=== PATIENT | male | born 1945 | race Caucasian/White ===

== ENCOUNTER 2018-02-28 17:18 | Emergency (ER) | payer MEDICARE, OTHER ==
[2018-02-28 18:09] LABS: ABS Basophils 0.1 10^3/ul (0-0.2); ABS Eosinophils 0.1 10^3/ul (0-0.6); ABS Lymphocytes 0.9 10^3/ul (1.0-4.8); ABS Monocytes 0.8 10^3/ul (0-0.8); ABS Neutrophils 6.2 10^3/ul (1.5-7.7); ABS Nucleated RBC 0 10^3/ul; Eosinophil % 1.1 % (0-6); Hematocrit 43 % (42-52); Hemoglobin 14.5 g/dl (14.0-18.0); Lymphocyte % 11.6 % (25-47); Mean Corpuscular HGB Conc 34 g/dl (31-36); Mean Corpuscular Hemoglobin 29 pg (27-31); Mean Corpuscular Volume 87 fL (80-94); Mean Platelet Volume 8.2 um3 (7.4-10.4); Nucleated Red Blood Cells % 0; Platelet Count 185 10^3/ul (150-450); Red Blood Count 4.93 10^6/ul (4.0-5.4); Red Cell Distribution Width 14 % (10.5-15); White Blood Count 8.2 10^3/ul (3.5-10.8)
[2018-02-28 18:26] LABS: EGFR Non-African American 56.3 (>60)
--- NOTE | 2018-02-28 18:46 | RAD ---
CLINICAL HISTORY: Right flank pain and right lower quadrant pain COMPARISON: November 15, 2009 TECHNIQUE: Multiple contiguous axial CT scans were obtained of the abdomen and pelvis, without intravenous contrast enhancement. Coronal and sagittal multiplanar reformations are submitted for review. Oral contrast was not administered. FINDINGS: The study is limited by the lack of intravenous contrast. This limits evaluation of the solid organs and vasculature. LUNG BASES: There is a calcified granuloma of the left lower lobe. LIVER: The liver is normal in shape, size, contour, and attenuation. BILE DUCTS: There is no intrahepatic or extrahepatic biliary dilatation. GALLBLADDER: The gallbladder is normal, without pericholecystic inflammatory change. PANCREAS: There is fatty atrophy of the pancreas. SPLEEN: Normal in size and appearance. UPPER GI TRACT: Evaluation of the gastrointestinal tract is limited by incomplete gastric distention. The upper GI tract is unremarkable. SMALL BOWEL AND MESENTERY: The small bowel is normal in contour, course, and caliber. There is no obstruction or dilatation. COLON: There is scattered diverticula of the distal colon. There is a tubular, vermiform, hollow viscus that is blind ending, and originates from the cecum, consistent with a normal appendix. There is no periappendiceal inflammatory change. This is best seen on coronal images 51 through 59. ADRENALS: Normal bilaterally. KIDNEYS: There are multiple renal calyceal stones bilaterally. There is a 0.3 cm calculus of the mid right ureter. There is mild pelvocaliectasis and hydroureter. BLADDER: The bladder is smooth in contour. PELVIC ORGANS: The pelvic organs are not visualized. AORTA: There is calcific atherosclerotic disease of the abdominal aorta and its branches, without aneurysmal dilatation IVC: Unremarkable LYMPH NODES: There is no lymphadenopathy by size criteria. ABDOMINAL WALL: There is no evidence for abdominal wall hernia. BONES AND SOFT TISSUES: Degenerative changes are noted of the spine. OTHER: None IMPRESSION: 1. BILATERAL NEPHROLITHIASIS INCLUDING A 0.3 CM TRACT WAS OF THE RIGHT MID URETER WITH MILD RIGHT HYDRONEPHROSIS. 2. SCATTERED DIVERTICULA OF THE DISTAL COLON.
[2018-02-28] MEDS ORDERED: Ketorolac INJ* 30 MG/ML 1 ML VIAL IV PUSH ONE (19:14)
[2018-02-28] MEDS ORDERED: Tamsulosin CAP* 0.4 MG PO ONE (19:48)
--- NOTE | 2018-02-28 19:50 | ED ---
GI/ HPI - HPI Summary HPI Summary: 43-year-old male presents with right lower quadrant pain for the past day. He states in the pain started he felt dizzy and nauseous. He states he became diaphoretic. He denies any chest pain or shortness breath. He has a history of stent placement. He denies any history of kidney stones. He states his pain does radiate to right flank. Denies any pain medication. He denies any hematuria. He denies any vomiting. Denies any diarrhea constipation. He denies any fevers. - History of Current Complaint Chief Complaint: EDAbdPain Time Seen by Provider: 02/28/18 17:44 Stated Complaint: LRQ PAIN Pain Intensity: 1 - Allergy/Home Medications Allergies/Adverse Reactions: Allergies Allergy/AdvReac Type Severity Reaction Status Date / Time Tetanus Vaccines and Toxoid AdvReac Fever Verified 01/10/18 15:32 Home Medications: Home Medications Aspirin EC TAB* [Ecotrin EC Low Dose 81 MG*] 81 mg PO DAILY 02/28/18 [History Confirmed 02/28/18] Canagliflozin (NF) [Invokana (NF)] 100 mg PO DAILY 02/28/18 [History Confirmed 02/28/18] Nitroglycerin TAB 0.4 MG* 0.4 mg SL Q5M PRN 02/28/18 [History Confirmed 02/28/18 ] Pantoprazole TAB (NF) [Protonix TAB (NF)] 40 mg PO DAILY 02/28/18 [History Confirmed 02/28/18] Rosuvastatin (NF) [Crestor (NF)] 10 mg PO DAILY 02/28/18 [History Confirmed 01/13] metFORMIN* [Glucophage 500 MG TAB *] 500 mg PO BID 02/28/18 [History Confirmed 02/28/18] PMH/Surg Hx/FS Hx/Imm Hx Endocrine/Hematology History: Denies: Hx Diabetes Cardiovascular History: Reports: Hx Angina - had back pain, Hx Coronary Artery Disease, Hx Hypercholesterolemia, Hx Hypertension Denies: Hx Myocardial Infarction, Hx Pacemaker/ICD, Hx Valvular Heart Disease Respiratory History: Denies: Hx Asthma, Hx Chronic Obstructive Pulmonary Disease (COPD) History: Denies: Hx Dialysis Sensory History: Denies: Hx Hearing Aid Psychiatric History: Denies: Hx Panic Disorder - Surgical History Surgery Procedure, Year, and Place: CARDIAC STENT- [facility] SCIENTIFIC VERIFLEX- PER DR SOTO- MRIs ONLY ON 1.5T AND NO MRIs BETWEEN CSP & PELVIS- OK TO SCAN THIS PT'S PELVIS & BELOW); CATARACTS; PROSTATE REMOVED 2010; Infectious Disease History: No Infectious Disease History: Denies: Hx Clostridium Difficile, Hx Hepatitis, Hx Human Immunodeficiency Virus (HIV), Hx of Known/Suspected MRSA, Hx Shingles, Hx Tuberculosis, Traveled Outside the [place] in Last 30 Days - Social History Alcohol Use: Rare Substance Use Type: Reports: None Smoking Status (MU): Former Smoker Type: Cigarettes Length of Time of Smoking/Using Tobacco: 8yrs Have You Smoked in the Last Year: No Review of Systems Negative: Fever Negative: Chest Pain Negative: Shortness Of Breath Positive: Abdominal Pain. Negative: Vomiting, Nausea Positive: flank pain Neurological: Other - dizziness All Other Systems Reviewed And Are Negative: Yes Physical Exam Triage Information Reviewed: Yes Vital Signs On Initial Exam: Initial Vitals Pulse Pulse Ox 75 99 02/28/18 17:28 02/28/18 17:28 Vital Signs Reviewed: Yes Appearance: Positive: Well-Appearing Skin: Positive: Warm, Dry Head/Face: Positive: Normal Head/Face Inspection Eyes: Positive: Normal, Conjunctiva Clear ENT: Positive: Pharynx normal Respiratory/Lung Sounds: Positive: Clear to Auscultation, Breath Sounds Present Cardiovascular: Positive: Normal, RRR Abdomen Description: Positive: Soft, CVA Tenderness (R), Other: - mild tenderness RLQ Bowel Sounds: Positive: Present Musculoskeletal: Positive: Normal Neurological: Positive: Normal Psychiatric: Positive: Normal Diagnostics - Vital Signs Vital Signs Temp Pulse Resp BP Pulse Ox 02/28/18 18:28 16 135/95 02/28/18 18:00 73 15 99 02/28/18 17:58 78 18 141/94 100 02/28/18 17:31 77 10 135/97 99 02/28/18 17:30 97.3 F 79 16 135/97 100 02/28/18 17:28 75 99 - Laboratory Lab Results: Lab Results 02/28/18 02/28/18 02/28/18 Range/Units 17:57 17:57 17:57 WBC 8.2 (3.5-10.8) 10^3/ul RBC 4.93 (4.0-5.4) 10^6/ul Hgb 14.5 (14.0-18.0) g/dl Hct 43 (42-52) % MCV 87 (80-94) fL MCH 29 (27-31) pg MCHC 34 (31-36) g/dl RDW 14 (10.5-15) % Plt Count 185 (150-450) 10^3/ul MPV 8.2 (7.4-10.4) um3 Neut % (Auto) 76.2 (38-83) % Lymph % (Auto) 11.6 L (25-47) % Ross % (Auto) 10.3 H (0-7) % Eos % (Auto) 1.1 (0-6) % Baso % (Auto) 0.8 (0-2) % Absolute Neuts (auto) 6.2 (1.5-7.7) 10^3/ul Absolute Lymphs (auto) 0.9 L (1.0-4.8) 10^3/ul Absolute Monos (auto) 0.8 (0-0.8) 10^3/ul Absolute Eos (auto) 0.1 (0-0.6) 10^3/ul Absolute Basos (auto) 0.1 (0-0.2) 10^3/ul Absolute Nucleated RBC 0 10^3/ul Nucleated RBC % 0 Sodium 137 L (139-145) mmol/L Potassium 3.9 (3.5-5.0) mmol/L Chloride 101 (101-111) mmol/L Carbon Dioxide 28 (22-32) mmol/L Anion Gap 8 (2-11) mmol/L BUN 16 (6-24) mg/dL Creatinine 1.26 H (0.67-1.17) mg/dL Est GFR ( Amer) 72.3 (>60) Est GFR (Non-Af Amer) 56.3 (>60) BUN/Creatinine Ratio 12.7 (8-20) Glucose 142 H (70-100) mg/dL Lactic Acid 1.8 (0.5-2.0) mmol/L Calcium 9.7 (8.6-10.3) mg/dL Total Bilirubin 0.70 (0.2-1.0) mg/dL AST 29 (13-39) U/L ALT 34 (7-52) U/L Alkaline Phosphatase 70 (34-104) U/L Troponin I 0.00 (<0.04) ng/mL C-Reactive Protein 1.03 (< 5.00) mg/L Total Protein 7.4 (6.4-8.9) g/dL Albumin 4.5 (3.2-5.2) g/dL Globulin 2.9 (2-4) g/dL Albumin/Globulin Ratio 1.6 (1-3) Lipase 15 (11.0-82.0) U/L TSH 2.62 (0.34-5.60) mcIU/mL Result Diagrams: 02/28/18 17:57 02/28/18 17:57 Lab Statement: Any lab studies that have been ordered have been reviewed, and results considered in the medical decision making process. - CT abd CT Interpretation: No Acute Changes - IMPRESSION: 1. BILATERAL NEPHROLITHIASIS INCLUDING A 0.3 CM TRACT WAS OF THE RIGHT MID URETER WITH MILD RIGHT HYDRONEPHROSIS. 2. SCATTERED DIVERTICULA OF THE DISTAL COLON. CT Interpretation Completed By: Radiologist YONATHAN Course/Dx - Course Course Of Treatment: 43-year-old male presents with right lower quadrant pain for the past day. He states in the pain started he felt dizzy and nauseous. He states he became diaphoretic. He denies any chest pain or shortness breath. He has a history of stent placement. He denies any history of kidney stones. He states his pain does radiate to right flank. Denies any pain medication. He denies any hematuria. He denies any vomiting. Denies any diarrhea constipation. He denies any fevers. On exam has tenderness right lower quadrant and right flank. CT shows a 3 mm stone. urine no infection. will give pain medication although required no pain medicaton here. will have follow up with urology. patient understand and agrees with plan. - Diagnoses Differential Diagnoses - Male: Appendicitis, Ureteral Calculi, Urinary Tract Infection Provider Diagnoses: Urethral stone Discharge - Sign-Out/Discharge Documenting (check all that apply): Discharge/Admit/Transfer - Discharge Plan Condition: Good Disposition: HOME Prescriptions: Ondansetron ODT TAB* [Zofran 4 MG Odt TAB*] 4 mg PO Q6H PRN #12 tab.odt PRN Reason: Nausea oxyCODONE/Acetamin 5/325 MG* [Percocet 5/325 TAB*] 1 tab PO Q6H PRN #12 tab MDD 4 PRN Reason: Pain Tamsulosin CAP* [Flomax CAP*] 0.4 mg PO DAILY #10 cap Patient Education Materials: Ureteral Stones (ED) Referrals: Reese Streeter MD [Primary Care Provider] - Richar Gonzalez MD [Medical Doctor] - Additional Instructions: Take ibuprofen every 6 hours and narcotic as needed every 6 hours Take Zofran every 6 hours for nausea as needed Take Flomax daily starting tomorrow, first dose given in ED until stone expelled , make sure stand up slowly Follow up with urology, call office tomorrow for appointment Strain urine until collect stone Return to ED if unable to manage pain at home, develop fever, or any new or worsening symptoms - Billing Disposition and Condition Condition: GOOD Disposition: HOME
[2018-02-28 21:16] LABS: Urine Appearance Clear; Urine Blood 3+ (Negative); Urine Color Yellow; Urine Ketones 1+ (Negative); Urine Protein Negative (Negative); Urine Specific Gravity 1.016 (1.010-1.030); Urine Urobilinogen Negative (Negative)
[2018-02-28 21:35] VITALS: BP 138/87
== END 2018-02-28 21:48 | disposition home or self-care (01) ==
LOC: ED 17:18
DX: N20.1 Calculus of ureter (principal); R10.31 Right lower quadrant pain; Z87.891 Personal history of nicotine dependence
CPT/HCPCS: 36415; 74176; 80053; 81003; 81015; 83605; 83690; 84443; 84484; 85025; 86140; 87086; 93005; 96374; 99284; J1885

== ENCOUNTER 2018-12-31 08:07 | Observation (INO) | payer MEDICARE, OTHER ==
[2018-12-31] MEDS ORDERED: NS 0.9% 1000 ML** 1,000 ML IV ONE (08:22)
--- OUTSIDE RECORDS SUMMARY | 2018-12-31 08:27 | XMS REPORT | Continuity of Care Document ---
:1945 External Reference #:[id number] Author Name Tierra Cash Care Team Providers Name Role Phone Reese Streeter III, MD Care Team Information Procedure Analyst Unavailable Reese Streeter III, MD Primary Care Physician Unavailable Payers Date Identification Numbers Payment Provider Subscriber Effective: 2011 Policy Number: [id number] Medicare Cassidy Dacosta PayID: [id number] [address] [place] [address] Policy Number: [id number] [facility] Cassidy Dacosta PayID: [id number] [address] [place] [address] Effective: 2017 Policy Number: Sheila Dacosta [id number] Accident [employer] Expires: 2017 PayID: [id number] [address] [place] [address] Advance Directives Description No Information Available Problems Date Description Provider Status Onset: 01/09/2012 Acute upper respiratory infection Reese Streeter M.D. Active Onset: 01/18/2012 Gastroesophageal reflux disease Reese Streeter M.D. Active Onset: 01/18/2012 Pure hypercholesterolemia Reese Streeter M.D. Active Onset: 01/18/2012 Impaired fasting glycaemia Reese Streeter M.D. Active Onset: 01/18/2012 History of malignant neoplasm of Reese Streeter M.D. Active prostate Onset: 04/03/2012 Sore throat symptom Destiney Cash, Active N.P. Onset: 06/18/2013 Chronic ischemic heart disease Reese Streeter M.D. Active Onset: 06/18/2013 Hyperlipidemia Reese Streeter M.D. 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 Tobacco Use Start: Unknown 10/30 ppd; began age 46 quit 1996 ETOH Use 06/18/2013 Rarely consumes alcohol Tobacco Use Start: Unknown End: Patient is a former smoker Unknown Recreational Drug Use Denies Drug Use Smoking Status Reviewed: 12/17/18 Patient is a former smoker Exercise Type/Frequency Exercises regularly Allergies, Adverse Reactions, Alerts Date Description Reaction Status Severity Comments 10/04/2007 Lipitor rectal bleeding Active 10/04/2007 Zocor Active 08/04/2013 Tetnaus Injection fever, chills\\ Active Medications Medication Date Status Form Strength Qnty SIG Indications Ordering Provider Metformin HCL 07/29/ Active Tablets 500mg 360ta take 2 E11.9 Reese Blackman 2018 bs tabs in the Syl, morning and M.D. 2 in the evening Invokana 12/25/ Active Tablets 100mg 30tab 1 by mouth E11.9 Reese Blackman 2016 s every day Syl, before M.D. breakfast Crestor 01/29/ Active Tablets 10mg 90tab 1 by mouth Neftali 2013 s every day Alex, in the M.D., evening [facility] Pantoprazole 02/06/ Active Tablets 40mg 90tab take [address] Reese Hiral [address] pablo tablet Syl, every other M.D. day as needed Nitrostat 04/30/ Active Tablets 0.4mg 25tab one sl R07.9 Alvarado 2012 Sub s q5min up to Yoruba, 3 doses as [employer] needed Aspirin 00/00/ Active Tablets 81mg 1 po qd Unknown 0000 Home Glucose 12/19/ Hx (+) E11.9 Reese Blackman Monitor, Test 2017 - diabetes; Syl, Strips 06/18/ test as M.D. 2018 directed for glucose monitoring Metformin HCL 11/03/ Hx Tablets 500mg 360ta take 2 E11.9 Reese Blackman 2017 - bs tabs in the Syl, 07/29/ morning and M.D. 2018 1 in the evening Vitamin D 10/31/ Hx Capsules [id number] 8caps 1 cap by Alvarado (Ergocalciferol) 2017 - mouth once Yoruba, 12/18/ a week x8 [employer] 2017 weeks Tylenol With 10/16/ Hx Tablets 300-30mg 30tab 1 tab by S76.011D Alvarado Codeine #3 2015 - s mouth twice Yoruba, 11/14/ daily as [employer] 2016 needed for pain atleast 4-6 hours apart Cyclobenzaprine 09/27/ Hx Tablets 5mg 90tab take 1 S76.011D Alvarado HCL 2015 - s tablet by Yoruba, 10/16/ mouth up to [employer] 2015 three times a day as needed for muscle spasm Proctofoam HC 10/27/ Hx Foam 1-1% 1unit apply daily K64.9 Elder 2014 - s after bowel Pachikara 09/27/ movement , M.D. 2016 Doxycycline 02/11/ Hx Tablets 100mg 2tabs 2 tablets 911.4 Angie Hyclate 2013 - by mouth Varn, 02/12/ N.P. 2013 Crestor 01/29/ Hx Tablets 20mg 1 by mouth Neftali 2013 - every day Stefek, 01/29/ M.D., 2013 [facility], [facility] Crestor 12/26/ Hx Tablets 20mg 30tab 1 tab by Neftali 2012 - s mouth daily Stefek, 01/29/ every night M.D., 2013 [facility], [facility] Metoprolol 07/28/ Hx Tablets 25mg 180ta take 1 786.50 Neftali Tartrate 2011 - bs tablet a Stefek, 06/18/ day M.D., 2017 [facility], [facility] Lopressor 04/30/ Hx Tablets 25mgM 60tab 1 po bid 786.50 Reese Blackman 2011 - s Syl, 07/28/ M.D. 2011 Augmentin 04/03/ Hx Tablets 875-125mg 20tab take one 784.1 Destiney 2011 - s pill po [place]-W 04/14/ twice daily [place], 2012 x 10 N.P. Amoxicillin 01/08/ Hx Capsules 500mg 30cap 1 tid for 465.9 Reese Blackman 2011 - s 10 days Syl, M.DAbhijit 2011 Blood Pressure BP today is Reese Blackman Readings 2009 - 130/86 Syl, M.D. 2013 Ciprofloxacin HCL 01/19/ Hx Tablets 500mg 20tab 1 po bid Reese Blackman 2009 - s Syl, M.D. 2009 Doxycycline 02/01/ Hx Capsules 100mg 2Caps 2 caps po x Reese Blackman Hyclate 2008 - dose Syl, 01/19/ M.D. 2009 Zithromax Z-Rey 10/04/ Hx Tablets 250mg 1Pack as per Reese Blackman 2007 - directions Syl, 02/19/ M.D. 2007 Protonix / Hx Tablets 40mg 90tab 1 po qod Reese Blackman 0000 - DR samy Streeter, M.D. 2012 Cialis / Hx Tablets 20mg 10tab On Hold Unknown 0000 - s /2- 1 11/13/ prn 2013 Plavix / Hx Tablets 75mg 30tab 1 po qd Unknown 0000 - s 2012 Atorvastatin / Hx Tablets 20mg 90tab take 1 Unknown Calcium 0000 - s tablet at 02/19/ bedtime 2013 does non take Ibuprofen / Hx Tablets 200mg 4 bid S76.011D Unknown 0000 - 2016 Immunizations CPT Code Status Date Vaccine Lot # [id number] Given 08/06/2017 Influenza Virus Vaccine, Quadrivalent, Split, [id number] Preservative Free 92590 Given 07/28/2016 Influ Virus Vaccine, Quadrivalent, Split Virus, [place] [address] Given 08/18/2015 Fluzone High Dose [id number] Given 08/25/2014 Fluzone Vaccine [id number] Given 01/19/2010 Tetanus And Diptheria (Td) For Adult Use [id number] Preservative Free 29685 Given 08/05/2008 Influenza Virus 3Yrs & Over 34757 Given 08/05/2008 Influenza Virus 3Yrs & Over 12791 Given 10/29/1999 Td (History By Patient) Vital Signs Date Vital Result Comment 12/17/2018 4:47pm Height 67.8 inches 5'7.80" Weight 172.00 lb Heart Rate 84 /min BP Systolic Sitting 128 mmHg BP Diastolic Sitting 84 mmHg O2 % BldC Oximetry 98 % BMI (Body Mass Index) 26.3 kg/m2 06/19/2018 9:13am Height 67.8 inches 5'7.80" Weight 180.00 lb Heart Rate 86 /min BP Systolic Sitting 120 mmHg BP Diastolic Sitting 80 mmHg O2 % BldC Oximetry 98 % BMI (Body Mass Index) 27.5 kg/m2 12/19/2017 1:23pm Height 67.8 inches 5'7.80" Weight 179.00 lb Heart Rate 81 /min BP Systolic Sitting 118 mmHg BP Diastolic Sitting 76 mmHg O2 % BldC Oximetry 96 % BMI (Body Mass Index) 27.4 kg/m2 08/06/2017 1:15pm Height 69 inches 5'9" Weight 178.12 lb Heart Rate 80 /min BP Systolic 132 mmHg BP Diastolic 76 mmHg Body Temperature 98.0 F O2 % BldC Oximetry 98 % BMI (Body Mass Index) 26.3 kg/m2 04/23/2017 9:08am Weight 180.12 lb Heart Rate 79 /min BP Systolic 120 mmHg BP Diastolic 82 mmHg Body Temperature 98.6 F O2 % BldC Oximetry 98 % 02/14/2017 3:02pm Weight 182.00 lb Heart Rate 94 /min BP Systolic 130 mmHg BP Diastolic 82 mmHg Body Temperature 98.9 F O2 % BldC Oximetry 98 % 02/13/2017 2:06pm Weight 182.12 lb Heart Rate 88 /min BP Systolic Sitting 122 mmHg BP Diastolic Sitting 64 mmHg Body Temperature 97.6 F O2 % BldC Oximetry 98 % 01/15/2017 10:34am Height 69 inches 5'9" Weight 177.00 lb w/o shoes Heart Rate 70 /min reg BP Systolic Sitting 114 mmHg Rue, reg cuff BP Diastolic Sitting 74 mmHg Rue, reg cuff BP Systolic Standing 110 mmHg Rue BP Diastolic Standing 74 mmHg Rue Respiratory Rate 16 /min BMI (Body Mass Index) 26.1 kg/m2 Ejection Fraction 60-65% as of 06/17/15 echo 12/25/2016 11:42am Weight 181.00 lb Heart Rate 96 /min BP Systolic Sitting 140 mmHg BP Diastolic Sitting 90 mmHg Body Temperature 98.0 F O2 % BldC Oximetry 97 % 11/14/2016 1:12pm Weight 183.25 lb Heart Rate 98 /min BP Systolic Sitting 136 mmHg BP Diastolic Sitting 84 mmHg Body Temperature 97.9 F O2 % BldC Oximetry 99 % 11/13/2016 1:53pm Height 69 inches 5'9" Weight 180.00 lb Heart Rate 64 /min BP Systolic Sitting 124 mmHg BP Diastolic Sitting 80 mmHg Respiratory Rate 16 /min Pain Level 3 BMI (Body Mass Index) 26.6 kg/m2 11/03/2016 10:29am Height 69 inches 5'9" Weight 180.38 lb Heart Rate 100 /min BP Systolic 120 mmHg BP Diastolic 80 mmHg Body Temperature 98.1 F O2 % BldC Oximetry 96 % BMI (Body Mass Index) 26.6 kg/m2 10/16/2016 9:28am Height 69 inches 5'9" Weight 183.50 lb Heart Rate 86 /min BP Systolic Sitting 130 mmHg BP Diastolic Sitting 90 mmHg Body Temperature 98.4 F O2 % BldC Oximetry 98 % BMI (Body Mass Index) 27.1 kg/m2 09/27/2016 12:14pm Weight 194.00 lb Heart Rate 89 /min BP Systolic Sitting 136 mmHg BP Diastolic Sitting 82 mmHg Body Temperature 97.4 F O2 % BldC Oximetry 98 % 04/28/2016 1:08pm Height 69 inches 5'9" Weight 195.00 lb BP Systolic 138 mmHg BP Diastolic 90 mmHg BMI (Body Mass Index) 28.8 kg/m2 10/27/2015 8:59am Height 69 inches 5'9" Weight 200.00 lb Heart Rate 79 /min BP Systolic 129 mmHg BP Diastolic 81 mmHg Body Temperature 98.3 F O2 % BldC Oximetry 96 % BMI (Body Mass Index) 29.5 kg/m2 07/02/2015 3:17pm Height 69 inches 5'9" Weight 195.00 lb Heart Rate 68 /min 70 BP Systolic Sitting 118 mmHg right arm, reg cuff BP Diastolic Sitting 76 mmHg right arm, reg cuff BP Systolic Standing 118 mmHg right arm, reg cuff BP Diastolic Standing 76 mmHg right arm, reg cuff Respiratory Rate 20 /min BMI (Body Mass Index) 28.8 kg/m2 Ejection Fraction 60% 06/17/15 02/24/2015 10:57am Height 69 inches 5'9" Weight 199.00 lb Heart Rate 78 /min BP Systolic Sitting 126 mmHg BP Diastolic Sitting 82 mmHg Body Temperature 98.7 F O2 % BldC Oximetry 97 % BMI (Body Mass Index) 29.4 kg/m2 08/10/2014 3:07pm Height 69 inches 5'9" Weight 196.00 lb Heart Rate 76 /min 90 BP Systolic Sitting 132 mmHg right arm, reg cuff BP Diastolic Sitting 90 mmHg right arm, reg cuff BP Systolic Standing 130 mmHg right arm, reg cuff BP Diastolic Standing 88 mmHg right arm, reg cuff Respiratory Rate 16 /min BMI (Body Mass Index) 28.9 kg/m2 02/11/2014 1:20pm Weight 196.00 lb Heart Rate 80 /min BP Systolic Sitting 130 mmHg BP Diastolic Sitting 70 mmHg Body Temperature 97.9 F 11/13/2013 9:58am Height 69 inches 5'9" Weight 190.00 lb Heart Rate 68 /min BP Systolic 132 mmHg BP Diastolic 84 mmHg BMI (Body Mass Index) 28.1 kg/m2 08/04/2013 10:48am Height 68.5 inches 5'8.50" Weight 192.00 lb with shoes Heart Rate 7678 /min sit and stand HR reg BP Systolic Sitting 122 mmHg L arm reg cuff BP Diastolic Sitting 80 mmHg L arm reg cuff BP Systolic Standing 118 mmHg L arm reg cuff BP Diastolic Standing 76 mmHg L arm reg cuff Respiratory Rate 17 /min BMI (Body Mass Index) 28.8 kg/m2 06/18/2013 11:14am Height 68.5 inches 5'8.50" Weight 192.25 lb Heart Rate 82 /min BP Systolic Sitting 134 mmHg BP Diastolic Sitting 84 mmHg BMI (Body Mass Index) 28.8 kg/m2 02/19/2013 12:59pm Height 68.5 inches 5'8.50" Weight 193.50 lb Heart Rate 85 /min BP Systolic Sitting 138 mmHg BP Diastolic Sitting 86 mmHg BMI (Body Mass Index) 29.0 kg/m2 04/30/2012 4:48pm Height 68.25 inches 5'8.25" Weight 182.00 lb Heart Rate 74 /min BP Systolic Sitting 122 mmHg BP Diastolic Sitting 86 mmHg BMI (Body Mass Index) 27.5 kg/m2 04/03/2012 1:38pm Height 68.25 inches 5'8.25" Weight 180.00 lb Heart Rate 94 /min BP Systolic Sitting 122 mmHg BP Diastolic Sitting 68 mmHg Body Temperature 98.4 F lt ear BMI (Body Mass Index) 27.2 kg/m2 01/18/2012 10:44am Height 68.25 inches 5'8.25" Weight 179.00 lb Heart Rate 92 /min BP Systolic Sitting 120 mmHg BP Diastolic Sitting 76 mmHg BMI (Body Mass Index) 27.0 kg/m2 01/09/2012 2:34pm Height 68.5 inches 5'8.50" Weight 175.00 lb Heart Rate 80 /min BP Systolic Sitting 118 mmHg BP Diastolic Sitting 74 mmHg Body Temperature 98.5 F BMI (Body Mass Index) 26.2 kg/m2 07/27/2010 10:31am Weight 177.00 lb Heart Rate 90 /min BP Systolic Sitting 140 mmHg BP Diastolic Sitting 98 mmHg 02/02/2010 10:23am Heart Rate 80 /min 85 BP Systolic 148 mmHg 149/85 with pt's monitor BP Diastolic 88 mmHg 149/85 with pt's monitor 01/19/2010 2:38pm Height 68.5 inches 5'8.50" Weight 192.00 lb Heart Rate 76 /min BP Systolic 124 mmHg BP Diastolic 86 mmHg BMI (Body Mass Index) 28.8 kg/m2 02/01/2009 3:42pm Height 68.5 inches 5'8.50" Weight 200.00 lb with boots Heart Rate 64 /min BP Systolic Sitting 114 mmHg BP Diastolic Sitting 80 mmHg BMI (Body Mass Index) 30.0 kg/m2 11/03/2008 1:53pm Height 68.5 inches 5'8.50" Weight 202.00 lb Heart Rate 72 /min BP Systolic Sitting 122 mmHg BP Diastolic Sitting 84 mmHg BMI (Body Mass Index) 30.3 kg/m2 08/12/2008 9:26am Height 68.5 inches 5'8.50" Weight 195.00 lb Heart Rate 76 /min BP Systolic Sitting 130 mmHg BP Diastolic Sitting 80 mmHg BMI (Body Mass Index) 29.2 kg/m2 03/12/2008 11:00am Height 69 inches 5'9" Weight 197.50 lb with boots Heart Rate 68 /min BP Systolic Sitting 122 mmHg BP Diastolic Sitting 90 mmHg BMI (Body Mass Index) 29.2 kg/m2 02/20/2008 10:50am Height 69 inches 5'9" Weight 203.00 lb Heart Rate 76 /min BP Systolic Sitting 152 mmHg BP Diastolic Sitting 98 mmHg BMI (Body Mass Index) 30.0 kg/m2 10/04/2007 12:32pm Height 69 inches 5'9" 10/04/2007 12:12pm Height 69 inches 5'9" 10/04/2007 11:25am Height 69 inches 5'9" Weight 195.00 lb Heart Rate 80 /min BP Systolic Sitting 115 mmHg BP Diastolic Sitting 70 mmHg Body Temperature 99.7 F O2 % BldC Oximetry 96 % BMI (Body Mass Index) 28.8 kg/m2 Results Test Date Facility Test Result H/L Range Note Basic Metabolic 12/14/2018 [facility] Sodium 138 mmol/L N 135- [address] [place] [address] [phone] Potassium 4.5 mmol/L N 3.5-5.0 Chloride 102 mmol/L N 101-111 Co2 Carbon Dioxide 30 mmol/L N 22-32 Anion Gap 6 mmol/L N 2-11 Glucose 119 mg/dL High 70-100 Blood Urea Nitrogen 22 mg/dL N 6-24 Creatinine 1.03 mg/dL N 0.67-1.17 BUN/Creatinine Ratio 21.4 High 8-20 Calcium 10.2 mg/dL N 8.6-10.3 Egfr Non- 71.0 >60 Egfr 85.9 >60 1 Laboratory 12/14/2018 [facility] Hemoglobin 6.3 % High 4.0- 5.[address] A1c ([place] [address] HGB) [phone] Laboratory 12/14/2018 [facility] PSA < 0.008 ng/mL N 0-4.0 3 test finding [address] [place] [address] [phone] Laboratory 06/19/2018 [facility] Hemoglobin 7.1 High 5-7 test finding A1c Laboratory 06/12/2018 [facility] PSA < 0.008 ng/mL N 0-4.0 4 test finding [address] [place] [address] [phone] Laboratory 06/12/2018 [facility] Hepatitis C Nonreactive Nonreactive test finding [address] [place] [address] [phone] Vitamin B12 06/12/2018 [facility] Vitamin B12 373 pg/mL N 180- 914 [address] [place] [address] [phone] Folic Acid (Folate) > 20.00 ng/mL >3.99 Laboratory test 06/12/2018 [facility] Magnesium 2.0 mg/dL N 1.9-2.[address] [place] [address] [phone] CBC Auto Diff 06/12/2018 [facility] White Blood 7.0 N 3.5- 10.[address] Count 10^3/[place] [address] [phone] Red Blood Count 5.28 10^6/uL N 4.00-5.40 Hemoglobin 15.7 g/dL N 14.0-18.0 Hematocrit 46 % N 42-52 Mean Corpuscular Volume 88 fL N 80-94 Mean Corpuscular Hemoglobin 30 pg N 27-31 Mean Corpuscular HGB Conc 34 g/dL N 31-36 Red Cell Distribution Width 14 % N 10.5-15 Platelet Count 191 10^3/uL N 150-450 Mean Platelet Volume 8.6 um3 N 7.4-10.4 Abs Neutrophils 4.5 10^3/uL N 1.5-7.7 Abs Lymphocytes 1.5 10^3/uL N 1.0-4.8 Abs Monocytes 0.7 10^3/uL N 0-0.8 Abs Eosinophils 0.2 10^3/uL N 0-0.6 Abs Basophils 0.1 10^3/uL N 0-0.2 Abs Nucleated RBC 0 10^3/uL Granulocyte % 64.3 % N 38-83 Lymphocyte % 21.4 % Low 25-47 Monocyte % 10.3 % High 0-7 Eosinophil % 2.3 % N 0-6 Basophil % 1.7 % N 0-2 Nucleated Red Blood Cells % 0.1 Lipid Profile 06/12/2018 [facility] Triglycerides 191 mg/dL 6 (Trig/Chol/HDL) [address] [place] [address] [phone] Cholesterol 161 mg/dL 7 HDL Cholesterol 49.5 mg/dL 8 LDL Cholesterol 73 mg/dL 9 Comp Metabolic Panel 06/12/2018 [facility] Sodium 137 mmol/L N 135-[address] [place] [address] [phone] Potassium 4.4 mmol/L N 3.5-5.0 Chloride 104 mmol/L N 101-111 Co2 Carbon Dioxide 24 mmol/L N 22-32 Anion Gap 9 mmol/L N 2-11 Glucose 125 mg/dL High 70-100 Blood Urea Nitrogen 24 mg/dL N 6-24 Creatinine 1.06 mg/dL N 0.67-1.17 BUN/Creatinine Ratio 22.6 High 8-20 Calcium 10.0 mg/dL N 8.6-10.3 Total Protein 7.4 g/dL N 6.4-8.9 Albumin 4.8 g/dL N 3.2-5.2 Globulin 2.6 g/dL N 2-4 Albumin/Globulin Ratio 1.8 N 1-3 Total Bilirubin 0.80 mg/dL N 0.2-1.0 Alkaline Phosphatase 93 U/L N 34-104 Alt 39 U/L N 7-52 Ast 38 U/L N 13-39 Egfr Non- 68.7 >60 Egfr 83.1 >60 10 Urine Microalbumin 06/12/2018 [facility] Ur Microalbumin < 15.[address] (mg/L) [place] [address] [phone] Urine Creatinine 86.32 mg/dL Urine Microalbumin/Creatinine TNP <31 11 Urinalysis Profile 02/28/2018 [facility] Urine Color Yellow [address] [place] [address] [phone] Urine Appearance Clear Urine Specific [place] 1.016 N 1.010-1.030 Urine pH 6.0 N 5-9 Urine Urobilinogen Negative Negative Urine Ketones 1+ Abnormal Negative Urine Protein Negative Negative Urine Leukocytes Negative Negative Urine Blood 3+ Abnormal Negative Urine Nitrite Negative Negative Urine Bilirubin Negative Negative Urine Glucose 3+(>=500 mg/dL) Abnormal Negative Urine White Blood Cell Trace(0-5/hpf) Absent Urine Red Blood Cell 3+(>10/hpf) Abnormal Absent Urine Bacteria Absent Absent Urine Culture And 02/28/2018 [facility] Urine Culture SEE [address] [place] [address] BELOW [phone] Laboratory test 01/16/2018 [facility] Surgical SEE 13, finding [address] Interface RESULT 14 [place] [address] Order BELOW [phone] Laboratory test 12/19/2017 [facility] Hemoglobin 6.9 5-7 finding A1c Laboratory test 06/26/2017 [facility] Hemoglobin 6.8 % High Less [address] A1c ([place] [address] HGB) 6.0 [phone] Hepatitis C Antibody Nonreactive N Nonreactive Basic Metabolic Panel 04/20/2017 [facility] Sodium 137 mmol/L N 133-[address] [place] [address] [phone] Potassium 4.3 mmol/L N 3.5-5.0 Chloride 102 mmol/L N 101-111 Co2 Carbon Dioxide 27 mmol/L N 22-32 Anion Gap 8 mmol/L N 2-11 Glucose 117 mg/dL High 70-100 Blood Urea Nitrogen 21 mg/dL N 6-24 Creatinine 1.15 mg/dL N 0.67-1.17 BUN/Creatinine Ratio 18.3 N 8-20 Calcium 9.6 mg/dL N 8.6-10.3 Egfr Non- 62.7 N >60 Egfr 80.6 N >60 16 Laboratory test 04/20/2017 [facility] PSA Diagnostic < 0.008 N 0-4.0 [address] ng/mL [place], [place] [id number] [phone] Laboratory test 02/14/2017 [facility] Hemoglobin A1c 7.1 High 5-7 finding Laboratory test 12/25/2016 [facility] Hemoglobin A1c 6.9 5-7 finding Lipid Profile 12/21/2016 [facility] Triglycerides 287 mg/dL N 18 (Trig/Chol/HDL) [address] [place] [address] [phone] Cholesterol 180 mg/dL N 19 HDL Cholesterol 45.6 mg/dL N 20 LDL Cholesterol 77 mg/dL N 21 Urine Microalbumin 12/21/2016 [facility] Urine Creatinine 141.20 mg/dL N Random [address] [place], [place] [id number] [phone] Ur Microalbumin (mg/L) 23.9 mg/L N Urine Microalbumin/Creatinine 16.9 ug/mg N <31 Comp Metabolic Panel 12/21/2016 [facility] Sodium 139 mmol/L N 133-[address] [place] [address] [phone] Potassium 4.8 mmol/L N 3.5-5.0 Chloride 103 mmol/L N 101-111 Co2 Carbon Dioxide 29 mmol/L N 22-32 Anion Gap 7 mmol/L N 2-11 Glucose 168 mg/dL High 70-100 Blood Urea Nitrogen 14 mg/dL N 6-24 Creatinine 1.08 mg/dL N 0.67-1.17 BUN/Creatinine Ratio 13.0 N 8-20 Calcium 10.1 mg/dL N 8.6-10.3 Total Protein 7.3 g/dL N 6.4-8.9 Albumin 4.7 g/dL N 3.2-5.2 Globulin 2.6 g/dL N 2-4 Albumin/Globulin Ratio 1.8 N 1-3 Total Bilirubin 0.60 mg/dL N 0.2-1.0 Alkaline Phosphatase 100 U/L N 34-104 Alt 46 U/L N 7-52 Ast 36 U/L N 13-39 Egfr Non- 67.6 N >60 Egfr 86.9 N >60 22 Laboratory test 12/21/2016 [facility] Vitamin D Total 35.1 N 30-50 [address] 25(Oh) ng/[place] [address] [phone] Laboratory test 11/03/2016 [facility] House Hemoglobin A1c 12.4 High 5-7 finding Comp Metabolic 10/25/2016 [facility] Sodium 134 N 133-[address] mmol/[place] [address] [phone] Potassium 4.6 mmol/L N 3.5-5.0 Chloride 100 mmol/L Low 101-111 Co2 Carbon Dioxide 28 mmol/L N 22-32 Anion Gap 6 mmol/L N 2-11 Glucose 279 mg/dL High 70-100 Blood Urea Nitrogen 18 mg/dL N 6-24 Creatinine 1.13 mg/dL N 0.67-1.17 BUN/Creatinine Ratio 15.9 N 8-20 Calcium 9.9 mg/dL N 8.6-10.3 Total Protein 7.2 g/dL N 6.4-8.9 Albumin 4.6 g/dL N 3.2-5.2 Globulin 2.6 g/dL N 2-4 Albumin/Globulin Ratio 1.8 N 1-3 Total Bilirubin 0.90 mg/dL N 0.2-1.0 Alkaline Phosphatase 115 U/L High 34-104 Alt 49 U/L N 7-52 Ast 43 U/L High 13-39 Egfr Non- 64.2 N >60 Egfr 82.5 N >60 24 Lipid Profile 10/25/2016 [facility] Triglycerides 220 mg/dL N 25 (Trig/Chol/HDL) [address] [place] [address] [phone] Cholesterol 195 mg/dL N 26 HDL Cholesterol 56.7 mg/dL N 27 LDL Cholesterol 94 mg/dL N 28 Laboratory test 10/25/2016 [facility] Vitamin D 20.5 ng/mL Low 30-[address] Total 25(Oh) [place] [address] [phone] Ua Routine 09/27/2016 [facility] Ua Specific 1.020 [place] Ua PH 6 Ua Color yellow Ua Appera clear Ua WBC neg Ua Protein trace Ua Glucose 100 Ua Ketones neg Ua Bilirubin neg Ua Urobilinogen normal Ua Nitrite neg Ua Occult Blood neg Laboratory test 06/27/2016 [facility] PSA Diagnostic 0.012 N 0 -4.000 [address] ng/mL [place], [place] [address] [phone] Laboratory test 10/28/2015 [facility] Alt (SGPT) 52 U/L N 7- 52 30, [address] [place], [place] [address] [phone] Ast (Sgot) 51 U/L High 13-39 32 Lipid Profile 10/28/2015 [facility] Triglycerides 256 mg/dL N 33 (Trig/Chol/HDL) [address] [place] [address] [phone] Cholesterol 185 mg/dL N 34 HDL Cholesterol 49.3 mg/dL N 35 LDL Cholesterol 85 mg/dL N 36 Laboratory test 10/28/2015 [facility] Lyme Disease Negative N Negative [address] [place] [address] [phone] Laboratory test 08/31/2015 [facility] Alt (SGPT) 60 U/L High 7 -[address] [place] [address] [phone] Ast (Sgot) 48 U/L High 13-39 Lipid Panel 08/31/2015 [facility] Triglycerides 366 mg/dL N [address] [place] [address] [phone] Cholesterol 247 mg/dL N 39 HDL Cholesterol 41.7 mg/dL N 40 LDL Cholesterol 132 mg/dL N 41 Laboratory test 08/31/2015 [facility] PSA Diagnostic 0.206 N 0 -4.0 [address] ng/[place] [address] [phone] Laboratory test 10/23/2014 [facility] PSA Diagnostic 0.055 N 0 -4.0 [address] ng/mL [place] [place] [address] [phone] Laboratory test 05/04/2014 [facility] PSA Diagnostic 0.029 N 0 -4.0 [address] ng/[place] [address] [phone] Laboratory test 02/13/2014 [facility] Alt 34 U/L N 7-52 45, [address] [place] [address] [phone] Ast 30 U/L N 13-39 47 Lipid Profile 02/13/2014 [facility] Triglycerides 175 mg/dL N 48 (Trig/Chol/HDL) [address] [place], [place] [id number] [phone] Cholesterol 156 mg/dL N 49 HDL Cholesterol 45.3 mg/dL N 50 LDL Cholesterol 76 mg/dL N 51 Laboratory test 02/13/2014 [facility] Creatine Kinase 322 U/L High 10-223 [address] [place] [address] [phone] Laboratory test 11/05/2013 [facility] PSA Diagnostic 0.023 0- 4.0 [address] ng/[place] [address] [phone] Surgical 09/23/2013 [facility] S RUN [address] DATE: [place] [address] 09/24/ [phone] <SEE NOTE> Clotest 09/23/2013 [facility] Clotest (SEE [address] NOTE) [place] [address] [phone] Lipid Profile 05/02/2013 [facility] Triglycerides 189 40-200 (Trig/Chol/HDL) [address] DR[address] mg/[place] [address] [phone] Cholesterol 132 mg/dL Less than 200 HDL Cholesterol 46 mg/dL 40-60 56 Cholesterol/HDL Ratio 2.9 Average 1-4.44 LDL Cholesterol 48.2 Less Than 100 57 Laboratory test finding 05/02/2013 [facility] Alt 37 U/L 14- [address] [place] [address] [phone] Ast 33 U/L 12-42 Creatine Kinase 355 U/L High 0-200 Laboratory test 05/02/2013 [facility] PSA Screening 0.01 ng/mL 0-4.0 [address] [place] [address] [phone] Laboratory test 10/25/2012 [facility] PSA Diagnostic 0.00 ng/mL 0-4.0 [address] [place] [address] [phone] Liver Function 10/25/2012 [facility] Total Protein 7.0 g/dL 6.2-8.[address] [place] [address] [phone] Albumin 4.7 g/dL 3.2-5.2 Globulin 2.3 g/dL 2-4 Albumin/Globulin Ratio 2.0 1-3 Total Bilirubin 0.8 mg/dL 0.4-1.5 Direct Bilirubin 0.1 mg/dL 0.1-0.5 Indirect Bilirubin 0.7 mg/dL 0.3-1.0 Alkaline Phosphatase 76 U/L 30-110 Alt 51 U/L 14-54 Ast 39 U/L 12-42 Laboratory test 10/25/2012 [facility] Hemoglobin A1c 6.4 % High Less than [address] 6.0 [place] [address] [phone] Lipid Profile 10/25/2012 [facility] Triglycerides 221 High 40- 200 (Trig/Chol/HDL) [address] mg/[place] [address] [phone] Cholesterol 231 mg/dL High Less than 200 HDL Cholesterol 57 mg/dL 40-60 61 Cholesterol/HDL Ratio 4.1 Average 1-4.44 LDL Cholesterol 129.8 mg/dL High Less Than 100 62 Comp Metabolic Panel 10/25/2012 [facility] Sodium 142 mmol/L 133-[address] [place] [address] [phone] Potassium 5.0 mmol/L 3.5-5.0 Chloride 106 mmol/L 101-111 Co2 Carbon Dioxide 29.0 mmol/L 22-32 Anion Gap 7.0 mmol/L 2-11 Glucose 105 mg/dL High 70-100 Blood Urea Nitrogen 16 mg/dL 6-24 Creatinine 1.00 mg/dL 0.50-1.40 BUN/Creatinine Ratio 16.0 8-20 Calcium 9.9 mg/dL 8.1-9.9 Total Protein 7.5 g/dL 6.2-8.1 Albumin 4.6 g/dL 3.2-5.2 Globulin 2.9 g/dL 2-4 Albumin/Globulin Ratio 1.6 1-3 Total Bilirubin 0.8 mg/dL 0.4-1.5 Alkaline Phosphatase 74 U/L 30-110 Alt 53 U/L 14-54 Ast 40 U/L 12-42 Egfr Non- 74.8 >60 Egfr 96.1 >60 63 Lipid Panel - 10/25/2012 [facility] Creatine 275 U/L High 0- [address] [place] [address] [phone] MRSA/Vre Screen 05/22/2012 [facility] M --------- [address] ------- [place] [address] <SEE [phone] NOTE> Basic Metabolic 05/21/2012 [facility] Sodium 140 135-[address] mmol/[place] [address] [phone] Potassium 4.5 mmol/L 3.5-5.0 Chloride 105 mmol/L 101-111 Co2 (Carbon Dioxide) 29.0 mmol/L 22-32 Anion Gap 6.0 mmol/L 2-11 66 Glucose 110 mg/dL High 70-100 BUN 14 mg/dL 6-24 Creatinine 1.2 mg/dL 0.50-1.40 One Over Creatinine 0.83 BUN/Creatinine Ratio 11.7 8-20 Calcium 9.8 mg/dL 8.1-9.9 eGFR Non- 60.6 > 60 eGFR 77.9 > 60 67 CBC No Diff 05/21/2012 [facility] White Blood Count 6.0 CUMM 4.8-10.[address] [place] [address] [phone] Red Cell Count 5.01 CUMM 4.6-6.2 Hemoglobin 15.5 g/dL 14.0-18.0 Hematocrit 44 % 42-52 Mean Corpuscular Volume 88 um3 80-94 Mean Corpuscular Hemoglob 31 pg 27-31 Mean Corpuscular HGB Cone 35 g/dL 32-36 Redcell Distribution WDTH 14 % 10.5-15 Platelet Count 188 CUMM 150-450 Mean Platelet Volume 8.9 um3 7.4-10.4 Protime 05/21/2012 [facility] Inr 0.90 0.88-1.[address] [place] [address] [phone] Protime 10.7 SEC 10.3-13.5 69 Laboratory test 05/21/2012 [facility] PTT (Aptt) 29.0 SEC 25.1-38.5 [place] [address] [phone] Laboratory test 09/22/2011 [facility] PSA,Diagnostic 0.00 0- [address] NG/[place] [address] [phone] Surgical 08/30/2010 [facility] Surgical -------- [address] Pathology -------- [place] [address] <SEE [phone] NOTE> Laboratory test 07/27/2010 [facility] Hemoglobin A1c 6.4 5-7 finding Laboratory test 07/14/2010 [facility] PSA,Diagnostic 6.91 High 0-[address] NG/[place] [address] [phone] Surgical 03/14/2010 [facility] Surgical -------- [address] Pathology -------- [place] [address] <SEE [phone] NOTE> CBC With Manual 01/14/2010 [facility] White Blood 6.3 CUMM 4.8-10.[address] [place] [address] [phone] Red Cell Count 4.90 CUMM 4.6-6.2 Hemoglobin 14.9 g/dL 14.0-18.0 Hematocrit 43 % 42-52 Mean Corpuscular Volume 87 um3 80-94 Mean Corpuscular Hemoglob 30 pg 27-31 Mean Corpuscular HGB Cone 35 g/dL 32-36 Redcell Distribution WDTH 14 % 10.5-15 Platelet Count 218 CUMM 150-450 Mean Platelet Volume 8.2 um3 7.4-10.4 Polysegmented Neutrophil 67 % 38-83 Lymphocyte 14 % Low 25-47 Monocyte 13 % 0-13 Eosenophil 4 % 0-6 Basophil 1 % 0-2 Atypical Lymph 1 % 0-6 Absolute Neutrophil Count 4.2 RBC Morphology NORMAL Comp Metabolic Panel 01/14/2010 [facility] Sodium 137 mmol/L 135-[address] [place] [address] [phone] Potassium 4.3 mmol/L 3.5-5.0 Chloride 104 mmol/L 101-111 Co2 (Carbon Dioxide) 28.0 mmol/L 22-32 Anion Gap 5.0 mmol/L 2-11 74 Glucose 108 mg/dL High 70-100 75 BUN 10 mg/dL 6-24 Creatinine 1.10 mg/dL 0.50-1.40 One Over Creatinine 0.90 BUN/Creatinine Ratio 9.1 8-20 Calcium 9.5 mg/dL 8.1-9.9 76 Total Protein 6.8 GM/DL 6.2-8.1 Albumin 4.2 GM/DL 3.2-5.2 Globulin 2.6 GM/DL 2-4 Albumin/Globulin Ratio 1.6 1-3 Bilirubin Total 1.1 mg/dL 0.4-1.5 77 Alkaline Phosphatase 79 U/L 39-117 Alt (SGPT) 47 U/L 17-63 Ast (Sgot) 40 U/L 12-42 eGFR Non- 71.9 > 60 eGFR 86.9 > 60 78 Lipid Profile 01/14/2010 [facility] Triglyceride 150 mg/dL 40 -200 (Trig/Chol/HDL) [address] [place] [address] [phone] Cholesterol 211 mg/dL High Less Than 200 79 High Density Lipoprotein 44 mg/dL 40-60 80 Cholesterol/HDL Ratio 4.80 AVERAGE 1-4.97 Low Density Lipoprotein 137 mg/dL High Less Than 100 81 Laboratory test 01/14/2010 [facility] TSH 1.63 MIU/ML 0.34- 5.[address] [place] [address] [phone] PSA Screening 4.17 NG/ML High 0-4 82 Surgical 04/26/2009 [facility] Surgical 83 Pathology 101 [facility] Pathology <SEE NOTE> [place] [address] [phone] Creatinine 11/05/2008 [facility] Creatinine 1.20 mg/dL 0.[address] DRIVE 0-1 [place] [address] .40 [phone] One Over Creatinine 0.80 Laboratory 11/05/2008 [facility] BUN 15 mg/dL 6-[address] [place] [address] [phone] Laboratory 08/05/2008 [facility] Hemoglobin A1c 6.7 % High < 6.0 84, 85 test finding [address] [place] [address] [phone] Comp Metabolic 08/05/2008 [facility] Sodium 143 135-[address] mmol/[place] [address] [phone] Potassium 5.1 mmol/L High 3.5-5.0 Chloride 104 mmol/L 101-111 Co2 (Carbon Dioxide) 32.0 mmol/L 22-32 Anion Gap 7.0 mmol/L 2-11 86 Glucose 109 mg/dL High 70-100 87 BUN 21 mg/dL 6-24 Creatinine 1.4 mg/dL 0.5-1.4 One Over Creatinine 0.71 BUN/Creatinine Ratio 15.0 8-20 Calcium 10.1 mg/dL High 8.1-9.9 88 Total Protein 7.6 GM/DL 6.2-8.1 Albumin 4.7 GM/DL 3.2-5.2 Globulin 2.9 GM/DL 2-4 Albumin/Globulin Ratio 1.6 1-3 Bilirubin Total 1.0 mg/dL 0.4-1.5 Alkaline Phosphatase 75 U/L 39-117 Alt (SGPT) 48 U/L 17-63 Ast (Sgot) 38 U/L 12-42 Lipid Profile 08/05/2008 [facility] Triglyceride 225 mg/dL High 40-200 (Trig/Chol/HDL) [address] [place] [address] [phone] Cholesterol 246 mg/dL High Less Than 200 89 High Density Lipoprotein 42 mg/dL 40-60 90 Cholesterol/HDL Ratio 5.86 AVERAGE High 1-4.97 Low Density Lipoprotein 159 mg/dL High Less Than 100 91 Laboratory test 08/05/2008 [facility] TSH 2.88 MIU/ML 0.34- 5.[address] [place] [address] [phone] CBC With 08/05/2008 [facility] White Blood 6.4 CUMM 4.8-10.8 Electronic Diff [address] [place] [address] [phone] Red Cell Count 5.09 CUMM 4.6-6.2 Hemoglobin 15.2 g/dL 14.0-18.0 Hematocrit 45 % 42-52 Mean Corpuscular Volume 87 um3 80-94 Mean Corpuscular Hemoglob 30 pg 27-31 Mean Corpuscular HGB Cone 34 g/dL 32-36 Redcell Distribution WDTH 13 % 10.5-15 Platelet Count 238 CUMM 150-450 Mean Platelet Volume 8.5 um3 7.4-10.4 Gran % 54.0 % 38-83 Lymph % 31.4 % 20-45 Mononuclear % 11.4 % High 1-9 Eosinophil % 2.4 % 0-6 Basophil % 0.8 % 0-2 Abs Lymphs 2.0 1.0-4.8 Abs Mononuclear 0.7 0-0.8 Absolute Neutrophil Count 3.5 1.5-7.7 Abs Eosinophils 0.2 0-0.6 Abs Basophils 0.1 0-0.2 CBC With 02/21/2008 [facility] White Blood 7.2 CUMM 4.8-10.8 92 Electronic Diff [address] [place] [address] [phone] Abs Basophils 0.1 0-0.2 Abs Eosinophils 0.1 0-0.6 Absolute Neutrophil Count 4.1 1.5-7.7 Abs Lymphs 2.2 1.0-4.8 Abs Mononuclear 0.7 0-0.8 Basophil % 1.7 % 0-2 Hematocrit 44 % 42-52 Hemoglobin 15.5 g/dL 14.0-18.0 Eosinophil % 1.9 % 0-6 Gran % 56.5 % 38-83 Lymph % 30.6 % 20-45 Mean Corpuscular HGB Cone 35 g/dL 32-36 Mean Corpuscular Hemoglob 29 pg 27-31 Mean Corpuscular Volume 83 um3 80-94 Mean Platelet Volume 8.4 um3 7.4-10.4 Mononuclear % 9.3 % High 1-9 Platelet Count 245 CUMM 150-450 Red Cell Count 5.33 CUMM 4.6-6.2 Redcell Distribution WDTH 14 % 10.5-15 Urinalysis W/Microscopic 02/21/2008 [facility] Ua Color YELLOW [address] [place] [address] [phone] Amorphous Sed-U TRACE Appearance-Urine CLEAR Bilirubin-Ur NEGATIVE Negative Blood-Urine TRACE Abnormal Negative Epith Cells-Ur OCCASIONAL Esterase-Urine NEGATIVE Negative Glucose-Urine NEGATIVE Negative Ketones-Urine NEGATIVE Negative Nitrite NEGATIVE Negative PH-Urine 6.0 5-9 Protein-Urine NEGATIVE Negative RBC-Urine 2-5 0-2 Zpckandpcmvo-Ic-PSO NEGATIVE Negative Specific [place]-Ur 1.015 1.010-1.030 WBC-Urine RARE 0-5 Comp Metabolic Panel 02/21/2008 [facility] One Over Creatinine 0.83 [address] [place] [address] [phone] Anion Gap 7.0 mmol/L 2-11 93 Albumin/Globulin Ratio 1.5 1-3 Albumin 4.5 GM/DL 3.2-5.2 Alkaline Phosphatase 75 U/L 39-117 Alt (SGPT) 45 U/L 17-63 Ast (Sgot) 34 U/L 12-42 BUN 18 mg/dL 6-24 Calcium 10.0 mg/dL 8.7-10.2 Chloride 102 mmol/L 101-111 Co2 (Carbon Dioxide) 30.0 mmol/L 22-32 Globulin 3.0 GM/DL 2-4 Glucose 105 mg/dL 70-105 Potassium 4.7 mmol/L 3.5-5.0 Sodium 139 mmol/L 135-145 Bilirubin Total 0.8 mg/dL 0.4-1.5 Total Protein 7.5 GM/DL 6.2-8.1 BUN/Creatinine Ratio 15.0 8-20 Creatinine 1.2 mg/dL 0.5-1.4 Lipid Profile 02/21/2008 [facility] Cholesterol/HDL 5.77 High 1-4.97 (Trig/Chol/HDL) [address] [place] [address] [phone] Cholesterol 254 mg/dL High Less Than 200 94 Triglyceride 355 mg/dL High 40-200 High Density Lipoprotein 44 mg/dL 40-60 95 Low Density Lipoprotein 139 mg/dL High Less Than 100 96 Laboratory test 02/21/2008 [facility] PSA Screening 2.11 NG/ML 0-4 [address] [place] [address] [phone] TSH 3.27 MIU/ML 0.34-5.60 Hemoglobin A1c 6.5 % High <6.0 98 1 Because ethnic data is not always readily available, this report includes an eGFR for both -Americans and non- Americans. The National Kidney Disease Education Program (NKDEP) does not endorse the use of the MDRD equation for patients that are not between the ages of 18 and 70, are , have extremes of body size, muscle mass, or nutritional status, or are non- or non-. According to the National Kidney Foundation, irrespective of diagnosis, the stage of the disease is based on the level of kidney function: Stage Description GFR(mL/min/1.73 m(2)) 1 Kidney damage with normal or decreased GFR 90 2 Kidney damage with mild decrease in GFR 60-89 3 Moderate decrease in GFR 30-59 4 Severe decrease in GFR 15-29 5 Kidney failure <15 (or dialysis) 2 Therapeutic target for the treatment of diabetes mellitus patients is <7% HBA1C, and in selective patients <6.0%. Please refer to [place] [employer] diabetic care guidelines for further information. 3 Serum levels of PSA measured using the [employer] DXI Hybritech immunoassay should not be interpreted as absolute evidence of the presence or absence of disease. The PSA value should be used in conjunction with other pertinent clinical diagnostic procedures. A PSA value in the range of 0.1 to 0.6 ng/ml is indeterminate if being used as an indicator of recurrent or residual disease. The values obtained with different assay methods or kits cannot be used interchangeably. 4 Serum levels of PSA measured using the K[employer] Mood[employer] DXI Hybritech immunoassay should not be interpreted as absolute evidence of the presence or absence of disease. The PSA value should be used in conjunction with other pertinent clinical diagnostic procedures. A PSA value in the range of 0.1 to 0.6 ng/ml is indeterminate if being used as an indicator of recurrent or residual disease. The values obtained with different assay methods or kits cannot be used interchangeably. 5 Normal Range 180 to 914 Indeterminate Range 145 to 180 Deficient Range <145 6 Desirable: <150 Borderline High: 150-199 High: 200-499 Very High: >500 7 Desirable: <200 Borderline High: 200-239 High: >239 8 Low: <40 Desirable: 40-60 High: >60 9 Desirable: <100 Near Optimal: 100-129 Borderline High: 130-159 High: 160-189 Very High: >189 10 Because ethnic data is not always readily available, this report includes an eGFR for both -Americans and non- Americans. The National Kidney Disease Education Program (NKDEP) does not endorse the use of the MDRD equation for patients that are not between the ages of 18 and 70, are , have extremes of body size, muscle mass, or nutritional status, or are non- or non-. According to the National Kidney Foundation, irrespective of diagnosis, the stage of the disease is based on the level of kidney function: Stage Description GFR(mL/min/1.73 m(2)) 1 Kidney damage with normal or decreased GFR 90 2 Kidney damage with mild decrease in GFR 60-89 3 Moderate decrease in GFR 30-59 4 Severe decrease in GFR 15-29 5 Kidney failure <15 (or dialysis) 11 Unable to calculate due to low microalbumin 12 SEE RESULT BELOW Name: CASSIDY DACOSTA : [address]: Manolo Dunne MD Acct: [id number] Unit: [id number] AGE: 73 Location: ED Re02/28/18 SEX: M Status: DEP ER SPEC: [id number] LESLIE: 02/28/[address] [facility] [address]: Rosemary OLIVO REQ: [id number] RECD: 02/28/18 STATUS: HEIDI ISLAS DR: Reese Dunne MD _ SOURCE: URINE SPDESC: ORDERED: Urine Culture Procedure Result Reported Site Urine Culture Final 03/01/18- 1612 ML No Growth (<1,000 CFU/mL) * - Main Lab . END OF REPORT DEPARTMENT OF PATHOLOGY, [address] [place] [address] Dakota Pierre M.D. Director [facility] # [id number] SEE RESULT BELOW Name: CASSIDY DACOSTA : [address]: Ángel Jean Baptiste MD Acct: [id number] Unit: [id number] AGE: 72 Location: ENDOCEC Re01/16/18 SEX: M Status: DEP REF SPEC: [id number] LESLIE: 01/16/18-[address] [facility] [address]: Ángel Jean Baptiste MD REQ: [id number] RECD: 01/16/18-1310 STATUS: KRISTYN ISLAS DR: Reese Streeter III, MD _ ORDERED: LEVEL 4/2 COMMENTS: [id number] FINAL DIAGNOSIS 1. Esophagus, at 38 cm, biopsy: -- Squamous and columnar mucosa with chronic inflammation and intestinal metaplasia. -- Dysplasia is absent. 2. Esophagus, at 36 cm, biopsy: -- Squamous and columnar mucosa with chronic inflammation and intestinal metaplasia. -- Dysplasia is absent. CLINICAL HISTORY [place]?s follow-up POST-OPERATIVE DIAGNOSIS Larynx ? symmetric; esophagus ? irregular ?spikes? of [place]?s 35-37 continuous, smooth, 37-39 no erosions; moderate hiatal hernia; stomach ? normal, no polyps or erosions; duodenum normal x40 cm. Conclusions/Plan: Hiatal hernia; Sev[place]'s; gastroesophageal reflux disease every other day GROSS DESCRIPTION 1. The specimen is received in formalin labeled, Biopsy Esophagus at 38 cm , and consists of a 1.0 x 0.5 by up to 0.2 cm aggregate of mast-pink irregular soft tissue fragments which is submitted entirely in one cassette. 2. The specimen is received in formalin labeled, Biopsy Esophagus at 36 cm , and consists of a 0.7 x 0.6 by up to 0.2 cm aggregate of mast-pink irregular soft tissue fragments which is submitted entirely in one cassette. Signed (signature on file) Rosemary Vera MD 1122 END OF REPORT DEPARTMENT OF PATHOLOGY, [address] [place] [address] Dakota Pierre M.D. Director [facility] # [id number] 15 Therapeutic target for the treatment of diabetes Mellitus patients is <7% HBA1C, and in selective patients <6.0%.Please refer to [place] [employer] Diabetic care guidelines for further information. 16 Because ethnic data is not always readily available, this report includes an eGFR for both -Americans and non- Americans. The National Kidney Disease Education Program (NKDEP) does not endorse the use of the MDRD equation for patients that are not between the ages of 18 and 70, are , have extremes of body size, muscle mass, or nutritional status, or are non- or non-. According to the National Kidney Foundation, irrespective of diagnosis, the stage of the disease is based on the level of kidney function: Stage Description GFR(mL/min/1.73 m(2)) 1 Kidney damage with normal or decreased GFR 90 2 Kidney damage with mild decrease in GFR 60-89 3 Moderate decrease in GFR 30-59 4 Severe decrease in GFR 15-29 5 Kidney failure <15 (or dialysis) 17 Serum levels of PSA measured using the [employer] DXI Hybritech immunoassay should not be interpreted as absolute evidence of the presence or absence of disease. The PSA value should be used in conjunction with other pertinent clinical diagnostic procedures. A PSA value in the range of 0.1 to 0.6 ng/ml is indeterminate if being used as an indicator of recurrent or residual disease. The values obtained with different assay methods or kits cannot be used interchangeably. 18 Desirable <150 Borderline high 150-199 High 200-499 Very High >500 19 Desirable <200 Borderline high 200-239 High >239 20 Low <40 Desirable: 40-60 High: >60 21 Desirable: <100 mg/dL Near Optimal: 100-129 mg/dL Borderline High: 130-159 mg/dL High: 160-189 mg/dL Very High: >189 mg/dL 22 Because ethnic data is not always readily available, this report includes an eGFR for both -Americans and non- Americans. The National Kidney Disease Education Program (NKDEP) does not endorse the use of the MDRD equation for patients that are not between the ages of 18 and 70, are , have extremes of body size, muscle mass, or nutritional status, or are non- or non-. According to the National Kidney Foundation, irrespective of diagnosis, the stage of the disease is based on the level of kidney function: Stage Description GFR(mL/min/1.73 m(2)) 1 Kidney damage with normal or decreased GFR 90 2 Kidney damage with mild decrease in GFR 60-89 3 Moderate decrease in GFR 30-59 4 Severe decrease in GFR 15-29 5 Kidney failure <15 (or dialysis) 23 due december 29 or after Because ethnic data is not always readily available, this report includes an eGFR for both -Americans and non- Americans. The National Kidney Disease Education Program (NKDEP) does not endorse the use of the MDRD equation for patients that are not between the ages of 18 and 70, are , have extremes of body size, muscle mass, or nutritional status, or are non- or non-. According to the National Kidney Foundation, irrespective of diagnosis, the stage of the disease is based on the level of kidney function: Stage Description GFR(mL/min/1.73 m(2)) 1 Kidney damage with normal or decreased GFR 90 2 Kidney damage with mild decrease in GFR 60-89 3 Moderate decrease in GFR 30-59 4 Severe decrease in GFR 15-29 5 Kidney failure <15 (or dialysis) 25 Desirable <150 Borderline high 150-199 High 200-499 Very High >500 26 Desirable <200 Borderline high 200-239 High >239 27 Low <40 Desirable: 40-60 High: >60 28 Desirable: <100 mg/dL Near Optimal: 100-129 mg/dL Borderline High: 130-159 mg/dL High: 160-189 mg/dL Very High: >189 mg/dL 29 Serum levels of PSA measured using the [employer] DXI Hybritech immunoassay should not be interpreted as absolute evidence of the presence or absence of disease. The PSA value should be used in conjunction with other pertinent clinical diagnostic procedures. A PSA value in the range of 0.1 to 0.6 ng/ml is indeterminate if being used as an indicator of recurrent or residual disease. The values obtained with different assay methods or kits cannot be used interchangeably. 30 FASTING to be done after 8 weeks back on crestor with copy to Dr. Syl OROZCO 31 FASTING to be done after 8 weeks back on crestor with copy to Dr. Syl OROZCO 32 FASTING to be done after 8 weeks back on crestor with copy to Dr. Syl OROZCO 33 Desirable <150 Borderline high 150-199 High 200-499 Very High >500 34 Desirable <200 Borderline high 200-239 High >239 35 Low <40 Desirable: 40-60 High: >60 36 Desirable: <100 mg/dL Near Optimal: 100-129 mg/dL Borderline High: 130-159 mg/dL High: 160-189 mg/dL Very High: >189 mg/dL 37 Serologic response to B. burgdorferi infection is not detected, but cannot rule out early infection during which low or undetectable antibody levels to B. burgdorferi may be present. If clinically indicated, a new serum specimen should be submitted in 7-14 days. Test Performed by: [address] [address] Senior Java Software Engineer: Manolo Arora II, M.D., Ph.D. 38 Desirable <150 Borderline high 150-199 High 200-499 Very High >500 39 Desirable <200 Borderline high 200-239 High >239 40 Low <40 Desirable: 40-60 High: >60 41 Desirable: <100 mg/dL Near Optimal: 100-129 mg/dL Borderline High: 130-159 mg/dL High: 160-189 mg/dL Very High: >189 mg/dL 42 Serum levels of PSA measured using the [employer] DXI Hybritech immunoassay should not be interpreted as absolute evidence of the presence or absence of disease. The PSA value should be used in conjunction with other pertinent clinical diagnostic procedures. A PSA value in the range of 0.1 to 0.6 ng/ml is indeterminate if being used as an indicator of recurrent or residual disease. The values obtained with different assay methods or kits cannot be used interchangeably. 43 Serum levels of PSA measured using the [employer] Mood[employer] DXI Hybritech immunoassay should not be interpreted as absolute evidence of the presence or absence of disease. The PSA value should be used in conjunction with other pertinent clinical diagnostic procedures. A PSA value in the range of 0.1 to 0.6 ng/ml is indeterminate if being used as an indicator of recurrent or residual disease. The values obtained with different assay methods or kits cannot be used interchangeably. 44 Serum levels of PSA measured using the Koby Moodus DXI Hybritech immunoassay should not be interpreted as absolute evidence of the presence or absence of disease. The PSA value should be used in conjunction with other pertinent clinical diagnostic procedures. A PSA value in the range of 0.1 to 0.6 ng/ml is indeterminate if being used as an indicator of recurrent or residual disease. The values obtained with different assay methods or kits cannot be used interchangeably. 45 FASTING 46 FASTING 47 FASTING 48 Desirable <150 Borderline high 150-199 High 200-499 Very High >500 49 Desirable <200 Borderline high 200-239 High >239 50 Low <40 Desirable: 40-60 High: >60 51 Desirable <100 Near Optimal 100-129 Borderline high 130-159 High 160-189 Very High >189 52 FASTING 53 Serum levels of PSA measured using the Koby Kira DXI Hybritech immunoassay should not be interpreted as absolute evidence of the presence or absence of disease. The PSA value should be used in conjunction with other pertinent clinical diagnostic procedures. A PSA value in the range of 0.1 to 0.6 ng/ml is indeterminate if being used as an indicator of recurrent or residual disease. The values obtained with different assay methods or kits cannot be used interchangeably. 54 RUN DATE: 09/24/13 [facility] LAB LIVE PAGE 1 RUN TIME: [address] [place] [address] Specimen Inquiry Name: CONNIECASSIDY : [address]: Ángel Jean Baptiste MD Acct: [id number] Unit: [id number] AGE: 68 Location: ENDO Re09/23/13 SEX: M Status: REG REF SPEC: [id number] LESLIE: 09/23/13- SUBM DR: Ángel Jean Baptiste MD REQ: [id number] RECD: 09/23/13 STATUS: KRISTYN ISLAS DR: Reese Streeter III, MD _ ORDERED: LEVEL IV FINAL DIAGNOSIS Esophagus, at 38 cm., biopsy: A. Benign squamous and columnar mucosa with chronic inflammation and intestinal metaplasia. B. No evidence of dysplasia. CLINICAL HISTORY Sevilla's esophagus for EGD. Follow-up - no trouble with meals. POST-OPERATIVE DIAGNOSIS EGD. Larynx normal. Esophagus at 37-39-39 1/2 then medium hiatal hernia, smooth, biopsy x 3. Stomach - normal overall, duodenum normal. Impression: 1. Hiatal hernia, 2. Sevilla's - follow-up one year., 3. History of H pylori - Clotest pending. 4. Dysphagia GROSS DESCRIPTION The specimen is received in formalin labeled Cassidy Dacosta, Biopsy Esophagus at 38 cm. and consists of multiple, mast-white portions of tissue that in aggregate measure 0.6 x 0.4 x 0.2 cm. Submitted entirely, one cassette. Signed (signature on file) Rosemary Vera MD 1610 END OF REPORT * ML=Testing performed at Main Lab DEPARTMENT OF PATHOLOGY, [facility] [employer] [place], [place] [address] Dakota Pierre M.D. Director [facility] Permit #[id number] RUN DATE: 09/23/13 [facility] LAB LIVE PAGE 1 RUN TIME: 6819 [facility] [employer] [place], [place] [address] Specimen Inquiry Name: CASSIDY DACOSTA : [address]: Ángel Jean Baptiste MD Acct: [id number] Unit: [id number] AGE: 68 Location: ENDO Re09/23/13 SEX: M Status: REG REF SPEC: [id number] LESLIE: 09/23/[address]: Ángel Jean Baptiste MD REQ: [id number] RECD: 09/23/13 STATUS: COMP ENDYHR DR: Reese Streeter III, MD _ SOURCE: GAS ANTRUM SPDESC: ORDERED: Clotest Procedure Result Verified Site Clotest Final 09/23/13- 1536 ML Clotest Positive END OF REPORT * ML=Testing performed at Main Lab DEPARTMENT OF PATHOLOGY, [address] [place] [address] Dakota Pierre M.D. Director [facility] Permit #[id number] HDL Interpretation: Undesirable: High Risk: Less than 40 mg/dL Desirable: Low Risk: Greater than 60 mg/dL 57 LDL Interpretation: Low Risk Optimal Level: LDL Less than 100 mg/dL Near or Above Optimal: LDL 100-129 mg/dL Borderline High Risk: LDL 130-159 mg/dL High Risk: LDL 160-189 mg/dL Very High Risk: LDL Greater than 189 mg/dL 58 Serum levels of PSA measured using the [place] DXI Hybritech immunoassay should not be interpreted as absolute evidence of the presence or absence of disease. The PSA value should be used in conjunction with other pertinent clinical diagnostic procedures. A PSA value in the range of 0.1 to 0.6 ng/ml is indeterminate if being used as an indicator of recurrent or residual disease. The values obtained with different assay methods or kits cannot be used interchangeably. 59 Serum levels of PSA measured using the Koby Emgo DXI Hybritech immunoassay should not be interpreted as absolute evidence of the presence or absence of disease. The PSA value should be used in conjunction with other pertinent clinical diagnostic procedures. A PSA value in the range of 0.1 to 0.6 ng/ml is indeterminate if being used as an indicator of recurrent or residual disease. The values obtained with different assay methods or kits cannot be used interchangeably. 60 Therapeutic target for the treatment of diabetes Mellitus patients is <7% HBA1C, and in selective patients <6.0%.Please refer to [place] [employer] Diabetic care guidelines for further information. 61 HDL Interpretation: Undesirable: High Risk: Less than 40 MG/DL Desirable: Low Risk: Greater than 60 MG/DL 62 LDL Interpretation: Low Risk Optimal Level: LDL Less than 100 MG/DL Near or Above Optimal: LDL 100-129 MG/DL Borderline High Risk: LDL 130-159 MG/DL High Risk: LDL 160-189 MG/DL Very High Risk: LDL Greater than 189 MG/DL 63 Because ethnic data is not always readily available, this report includes an eGFR for both -Americans and non- Americans. The National Kidney Disease Education Program (NKDEP) does not endorse the use of the MDRD equation for patients that are not between the ages of 18 and 70, are , have extremes of body size, muscle mass, or nutritional status, or are non- or non-. According to the National Kidney Foundation, irrespective of diagnosis, the stage of the disease is based on the level of kidney function: Stage Description GFR(mL/min/1.73 m(2)) 1 Kidney damage with normal or decreased GFR 90 2 Kidney damage with mild decrease in GFR 60-89 3 Moderate decrease in GFR 30-59 4 Severe decrease in GFR 15-29 5 Kidney failure <15 (or dialysis) 64 FASTING 65 RUN DATE: 05/24/12 [facility] NMI LIVE PAGE 1 RUN TIME: 941 Specimen Inquiry RUN USER: INTERFACE Name: CASSIDY DACOSTA Acclidia#: [id number] Status: DIS IN Re05/22/12 Age/Sex: 67/M Unit#: [id number] Location: [facility] : [birth year] SPEC #: [id number] LESLIE: 05/22/12 STATUS: HEIDI REQ #: [id number] RECD: 05/22/12-[address]: Neftali Johnson MD SOURCE: NOSE ENTR: 05/22/12-[address]: Syl OROZCO MD, [facility]: ORDERED: MRSA/VRE CULT ACT WKST: B 05/24/12 #1 Procedure Result Verified Site > MRSA/VRE CULTURE Final 05/24/12- 0942 ML NO MRSA ISOLATED ML - [facility] Permit #[id number] [address] [place] [address] DEPARTMENT OF PATHOLOGY, [address] [place] [address] [facility] Permit #[id number] Dakota Pierre M.D. Director Aaron Corey M.D. [employer] 66 Anion gap measurement may be of limited value in the presence of any alkalosis, especially in a combined acid base disorder. . 67 Because ethnic data is not always readily available, this report includes an eGFR for both -Americans and non- Americans. The National Kidney Disease Education Program (NKDEP) does not endorse the use of the MDRD equation for patients that are not between the ages of 18 and 70, are , have extremes of body size, muscle mass, or nutritional status, or are non- or non-. According to the National Kidney Foundation, irrespective of diagnosis, the stage of the disease is based on the level of kidney function: Stage Description GFR(mL/min/1.73 m(2)) 1 Kidney damage with normal or decreased GFR 90 2 Kidney damage with mild decrease in GFR 60-89 3 Moderate decrease in GFR 30-59 4 Severe decrease in GFR 15-29 5 Kidney failure <15 (or dialysis) 68 Recommended INR for Patients on Oral Anticoagulants Prophylaxis 2.0 - 3.0 Treatment of thrombosis 2.0 - 3.0 Prevention of embolism 2.0 - 3.0 Prevention of embolism from prosthetic heart valves 2.5 - 3.5 69 DIAGNOSIS,TREATMENT,AND THERAPY MUST BE BASED ON THE INR VALUE ALONE. 70 * SERUM LEVELS OF PSA MEASURED USING THE SitScape ACCESS HYBRITECH IMMUNOASSAY SHOULD NOT BE INTERPRETED ABSOLUTE EVIDENCE OF THE PRESENCE OR ABSENCE OF DISEASE. THE PSA VALUE SHOULD BE USED IN CONJUNCTION WITH OTHER PERTINENT CLINICAL DIAGNOSTIC PROCEDURES. A PSA value in the range of 0.1 to 0.6 ng/ml is indeterminate if being used as an indicator of recurrent or residual disease. . 71 ---- RUN DATE: 09/02/10 [facility] LIVE PAGE 1 RUN TIME: 906 Specimen Inquiry RUN USER: INTERFACE -- Name: CASSIDY DACOSTA Hieu Acclidia#: [id number] Status: REG REF Re08/30/10 Age/Sex: 65/M Unit#: [id number] Location: [facility] : [birth year] -- Specimen: [id number] KRISTYN Spec Date: 08/30/[address]: Richar Feliciano i, MD Spec Type: SURGICAL P Received: 08/31/10 Copies to: Reese Streeter III, MD SPECIMEN 1) LEFT LOBE PROSTATE BIOPSY APEX (APEX 3) 2) LEFT LOBE PROSTATE BIOPSY BASE (BASE 3) 3) RIGHT LOBE PROSTATE BIOPSY APEX (APEX 3) 4) RIGHT LOBE PROSTATE BIOPSY BASE (BASE 3) HISTORY PRE-OP DIAGNOSIS: Elevation and progression of PSA, PSA 6.9 GROSS DESCRIPTION 1) The specimen is received in formalin labelled Cassidy Anderson, Left Prostate Lobe Gilson and consists of three, mast, soft tissue cores measuring 1.7 cm., 1.5 cm., and 1.2 x 0.1 cm. Submitted entirely, one cassette. 2) The specimen is received in formalin labelled [facility], Left Prostate Lobe Base and consists of three, mast, soft tissue cores measuring 1.8 cm., 1.7 cm., and 1.4 x 0.1 cm. Submitted entirely, one cassette. 3) The specimen is received in formalin labelled [facility], Right Prostate Lobe Gilson and consists of three, mast, soft tissue cores measuring 1.8 cm., 1.8 cm., and 1.6 x 0.1 cm. Submitted entirely, one cassette. 4) The specimen is received in formalin labelled Cassidy Anderson, Right Prostate Lobe Base and consists of three, mast, soft tissue cores measuring 1.4 cm., 1.3 cm., and 1.0 x 0.1 cm. Submitted entirely, one cassette. DIAGNOSIS 1) Prostate, left apex, core biopsy: A. Prostatic adenocarcinoma, small acinar and large gland types: 1. Mcarthur score: 3 + 4=7. 2. Extent of Local Invasion: Tumor involves two foci on two of three cores, measures 1.0 cm. in maximal aggregate span and occupies 30% of total core length. 3. Perineural Invasion: Not seen. 4. Angiolymphatic Invasion: Not seen. B. Other findings: None. -- DEPARTMENT OF PATHOLOGY, [address] [place] [address] [facility] Permit #[id number] Matilda Campbell M.D. Online Advertising Director ester -- -- RUN DATE: 09/02/10 [facility] NMI LIVE PAGE 2 RUN TIME: 906 Specimen Inquiry RUN USER: INTERFACE -- Name: CASSIDY DACOSTA Status: REG REF Re08/30/10 Age/Sex: 65/M Unit#: [id number] Location: [facility] : [birth year] -- -- CONTINUED -- DIAGNOSIS (Continued) 2) Prostate, left base, core biopsy: A. Prostatic adenocarcinoma, small acinar and large gland types: 1. Mcarthur score: 3 + 4=7 with focal Elieser's grade 5 component (see comment). 2. Extent of Local Invasion: tumor involves three foci on three of three cores, measures 2.7 cm. in maximal aggregate length and occupies 70% of total core volume. 3. Perineural Invasion: Not seen. 4. Angiolymphatic Invasion: Not seen. B. Other findings: None. 3) Prostate, right apex, core biopsy: A. Prostatic adenocarcinoma, small acinar type: 1. Mcarthur score: 3 + 3=6. 2. Extent of Local Invasion: Tumor involves one minute focus on one of three cores, measures less than 0.1 cm. and occupies less than 2% of total core volume. 3. Perineural Invasion: Not seen. 4. Angiolymphatic Invasion: Not seen. B. Other findings: None. 4) Prostate, right base, core biopsy: A. Benign prostate tissue. B. No evidence of neoplasia. COMMENT Parts 1 and 2 demonstrate bulky invasive prostatic adenocarcinoma with a mixed pattern of small acinar growth as well as large gland architecture. The large gland component demonstrates cribriform architectural features with solid areas warranting a designation of Elieser's 4 pattern. Additionally a small focus on part 2 demonstrating central comedo necrosis is identified, which by definition represents Mcarthur's pattern 5. Multiple foci in both parts demonstrate patchy mucinous differentiation, a feature also associated with aggressive behavior. -- DEPARTMENT OF PATHOLOGY, [address] [place] [address] [facility] Permit #[id number] Dakota Pierre M.D. Director Aaron Corey M.D. Online Advertising Director Dir ester -- -- RUN DATE: 09/02/10 [facility] NMI LIVE PAGE 3 RUN TIME: 906 Specimen Inquiry RUN USER: INTERFACE -- Name: CASSIDY DACOSTA Hieu Status: REG REF Re08/30/10 Age/Sex: 65/M Unit#: [id number] Location: [facility] : [birth year] -- -- CONTINUED -- ADDENDUM Addendum #1 Entered: 09/01/10-1520 Dr. Corey has reviewed this case and concurs. Addendum Review (signature on file)___Ana_ AARON COREY 09/02/10 -- Signed Electronically by: DAKOTA PIERRE MD 09/01/10 1450 -- -- DEPARTMENT OF PATHOLOGY, [address] [place] [address] [facility] Permit #[id number] Dakota Pierre M.D. Director Aaron Corey M.D. Online Advertising Director Dir ester -- 72 * SERUM LEVELS OF PSA MEASURED USING THE KOBY Lyfepoints ACCESS HYBRITECH IMMUNOASSAY SHOULD NOT BE INTERPRETED ABSOLUTE EVIDENCE OF THE PRESENCE OR ABSENCE OF DISEASE. THE PSA VALUE SHOULD BE USED IN CONJUNCTION WITH OTHER PERTINENT CLINICAL DIAGNOSTIC PROCEDURES. 73 ---- RUN DATE: 03/15/10 [facility] NMI LIVE PAGE 1 RUN TIME: 1257 Specimen Inquiry RUN USER: INTERFACE -- Name: CASSIDY DACOSTA Status: REG REF Re03/14/10 Age/Sex: 65/M Unit#: [id number] Location: [address] [place] [address]. : [birth year] -- Specimen: [id number] SOUT Spec Date: 03/14/[address]: Ángel stubbs MD Spec Type: SURGICAL P Received: 03/14/10-1670 Copies to: Reese Streeter III, MD SPECIMEN BIOPSY ESOPHAGUS AT 36 CM HISTORY POST-OP DIAGNOSIS: Hiatal hernia, Sevilla's, gastroesophageal reflux dise ase CLINICAL INFORMATION: Patient for follow up of Sevilla's, no current symp toms GROSS DESCRIPTION Specimen received in formalin labelled Cassidy Dacosta, Biopsy Esophagus and consists of multiple, mast, soft tissue fragments measuring 0.7 x 0.5 x 0.1 cm. Submitted entirely, one cassette. DIAGNOSIS Esophagus, 36 cm., biopsies: A) Gastroesophageal transition zone mucosa with mild reflux esophagitis. B) Extensive goblet cell metaplasia is noted. C) Reactive glandular epithelial changes. D) No dysplasia is identified. Signed Electronically by: DAKOTA PIERRE MD 03/15/10 1255 -- -- DEPARTMENT OF PATHOLOGY, [address] [place] [address] [facility] Permit #[id number] Dakota Pierre M.D. Director Aaron Corey M.D. Online Advertising Director Dir norman -- 74 Anion gap measurement may be of limited value in the presence of any alkalosis, especially in a combined acid base disorder. . 75 Note change in reference range as of 06/18/08. The change was based on recommendations from the [place] [employer]. 76 Please note change in reference range effective 08 . 77 A metabolite of Naproxen, O-desmethylnaproxen, has been shown to interfere with the Jendrassik-Sharon method for measuring total bilirubin. Samples from patients who have taken Naproxen have shown spurious elevation in total bilirubin levels. 78 Because ethnic data is not always readily available, this report includes an eGFR for both -Americans and non- Americans. The National Kidney Disease Education Program (NKDEP) does not endorse the use of the MDRD equation for patients that are not between the ages of 18 and 70, are , have extremes of body size, muscle mass, or nutritional status, or are non- or non-. According to the National Kidney Foundation, irrespective of diagnosis, the stage of the disease is based on the level of kidney function: Stage Description GFR(mL/min/1.73 m(2)) 1 Kidney damage with normal or decreased GFR 90 2 Kidney damage with mild decrease in GFR 60-89 3 Moderate decrease in GFR 30-59 4 Severe decrease in GFR 15-29 5 Kidney failure <15 (or dialysis) 79 CHOLESTEROL INTERPRETATION: Desirable: Less than 200 MG/DL Borderline-High Risk: 200-239 MG/DL High-Risk: 240 MG/DL and over 80 HDL INTERPRETATION: Undesirable: High Risk: Less than 40 MG/DL Desirable: Low Risk: Greater than 60 MG/DL 81 LDL INTERPRETATION: Low Risk Optimal Level: LDL Less than 100 MG/DL Near or Above Optimal: LDL 100-129 MG/DL Borderline High Risk: LDL 130-159 MG/DL High Risk: LDL 160-189 MG/DL Very High Risk: LDL Greater than 189 MG/DL 82 * SERUM LEVELS OF PSA MEASURED USING THE KOBY Lyfepoints ACCESS HYBRITECH IMMUNOASSAY SHOULD NOT BE INTERPRETED ABSOLUTE EVIDENCE OF THE PRESENCE OR ABSENCE OF DISEASE. THE PSA VALUE SHOULD BE USED IN CONJUNCTION WITH OTHER PERTINENT CLINICAL DIAGNOSTIC PROCEDURES. 83 ---- RUN DATE: 04/29/09 [facility] NMI LIVE PAGE 1 RUN TIME: 927 Specimen Inquiry RUN USER: INTERFACE -- Name: CASSIDY DACOSTA Status: REG REF Re04/26/09 Age/Sex: 64/M Unit#: [id number] Location: [address] [place] [address]. : 47 -- Specimen: [id number] SOUT Spec Date: 04/26/[address]: Ángel stubbs MD Spec Type: SURGICAL P Received: 04/27/09-1049 Copies to: Reese Streeter III, MD SPECIMEN BIOPSY ESOPHAGUS AT 38 CM. HISTORY POST-OP DIAGNOSIS: Gastroesophageal reflux disease, Sevilla's CLINICAL INFORMATION: Follow up Sevilla's, lost 13 lbs GROSS DESCRIPTION Specimen received in formalin labelled Cassidy Dacosta, Biopsy Esophagus at 38 cm. and consists of three fragments of mast-brown tissue, each measuring 0.3 x 0.2 x 0.2 cm. Submitted entirely, one cassette. DIAGNOSIS Esophagus at 38 cm., biopsy: A) Squamocolumnar junction with reactive squamous mucosa and cardia type mucosa. B) Intestinal metaplasia is present. C) Focal low grade dysplasia is present. Signed Electronically by: AARON COREY 04/29/0928 -- -- DEPARTMENT OF PATHOLOGY, [address] [place] [address] [facility] Permit #[id number] Dakota Pierre M.D. Director Aaron Corey M.D. Online Advertising Director Dir ester -- 84 PATIENT MAY HAVE RESULTS PER DOCTOR'S AUTHORIZATION. Questions regarding this report should be directed to your doctor. 85 THERAPEUTIC TARGET FOR THE TREATMENT OF DIABETES MELLITUS PATIENTS IS <7% HBA1C, AND IN SELECTIVE PATIENTS <6.0%. PLEASE REFER TO [place] [employer]ATION DIABETIC CARE GUIDELINES FOR FURTHER INFORMATION. 86 Anion gap measurement may be of limited value in the presence of any alkalosis, especially in a combined acid base disorder. . 87 Note change in reference range as of 06/18/08. The change was based on recommendations from the [place] Diabetes [employer]. 88 Please note change in reference range effective 08 . 89 CHOLESTEROL INTERPRETATION: Desirable: Less than 200 MG/DL Borderline-High Risk: 200-239 MG/DL High-Risk: 240 MG/DL and over 90 HDL INTERPRETATION: Undesirable: High Risk: Less than 40 MG/DL Desirable: Low Risk: Greater than 60 MG/DL 91 LDL INTERPRETATION: Low Risk Optimal Level: LDL Less than 100 MG/DL Near or Above Optimal: LDL 100-129 MG/DL Borderline High Risk: LDL 130-159 MG/DL High Risk: LDL 160-189 MG/DL Very High Risk: LDL Greater than 189 MG/DL 92 FASTING 93 Anion gap measurement may be of limited value in the presence of any alkalosis, especially in a combined acid base disorder. . 94 CHOLESTEROL INTERPRETATION: Desirable: Less than 200 MG/DL Borderline-High Risk: 200-239 MG/DL High-Risk: 240 MG/DL and over 95 HDL INTERPRETATION: Undesirable: High Risk: Less than 40 MG/DL Desirable: Low Risk: Greater than 60 MG/DL 96 LDL INTERPRETATION: Low Risk Optimal Level: LDL Less than 100 MG/DL Near or Above Optimal: LDL 100-129 MG/DL Borderline High Risk: LDL 130-159 MG/DL High Risk: LDL 160-189 MG/DL Very High Risk: LDL Greater than 189 MG/DL 97 * SERUM LEVELS OF PSA MEASURED USING THE SitScape ACCESS HYBRITECH IMMUNOASSAY SHOULD NOT BE INTERPRETED ABSOLUTE EVIDENCE OF THE PRESENCE OR ABSENCE OF DISEASE. THE PSA VALUE SHOULD BE USED IN CONJUNCTION WITH OTHER PERTINENT CLINICAL DIAGNOSTIC PROCEDURES. 98 THERAPEUTIC TARGET FOR THE TREATMENT OF DIABETES MELLITUS PATIENTS IS <7% HBA1C, AND IN SELECTIVE PATIENTS <6.0%. PLEASE REFER TO [place] [employer] DIABETIC CARE GUIDELINES FOR FURTHER INFORMATION. Procedures Date Code Description Status 08/07/2018 817245844 Diabetic Retinal Eye Exam Completed 04/27/2017 [id number] Diabetic Retinal Eye Exam Completed 01/15/2017 84064 EKG Tracing & Interpretation Completed 07/02/2015 07163 EKG Tracing & Interpretation Completed 06/22/2015 34893 Stress Test Supervsn W/Out I/R Completed 06/22/2015 06156 Treadmill Interp/Report Only Completed 06/18/2015 49400 ECHO Transthorasic Realtime 2D W Doppler & Color Flow Completed Hosp 08/10/2014 43968 EKG Tracing & Interpretation Completed 07/16/2013 50773 Treadmill Interp/Report Only Completed 07/16/2013 09648 Stress Test Supervsn W/Out I/R Completed 12/26/2012 12164 EKG Tracing & Interpretation Completed 04/30/2012 13698 EKG Tracing & Interpretation Completed 06/12/2011 [id number] Colonoscopy Completed 01/19/2010 04769 EKG Tracing & Interpretation Completed 04/26/2009 [id number] Colonoscopy Completed 08/12/2008 99625 EKG Tracing & Interpretation Completed 08/12/2008 20639 EKG Tracing & Interpretation Completed 10/04/2007 31947 Noninvasive Ear Or Pulse Oximetry For Oxygen Completed Saturation 10/04/2007 95684 Noninvasive Ear Or Pulse Oximetry For Oxygen Completed Saturation Encounters Type Date Location Provider Dx Diagnosis Office Visit 06/19/2018 [facility] Internal Reese Blackman E11.9 Type 2 diabetes 9:00a Becca Streeter M.D. mellitus without [place] complications K21.9 Gastro-esophageal reflux disease without esophagitis I25.10 [facility] heart disease of [place] coronary artery w/o ang pctrs E78.5 Hyperlipidemia, unspecified Z85.46 Personal history of malignant neoplasm of prostate Office Visit 08/06/2017 1:20p [facility] Shoaib Blackman E11.9 Type 2 diabetes Becca Streeter M.D. mellitus without [place] complications Z23 Encounter for immunization Office Visit 04/23/2017 9:00a [facility] Shoaib Blackman E11.9 Type 2 diabetes Becca Streeter M.D. mellitus without [place] complications E78.5 Hyperlipidemia, unspecified Z11.59 Encounter for screening for other viral diseases Office Visit 02/14/2017 Nancy Blackman E11.9 Type 2 diabetes 2:20p Becca Streeter M.D. mellitus without [place] complications Office Visit 02/13/2017 [facility] Internal Alvarado Tellez, M25.551 Pain in right hip 2:00p Medicine - [place] [address] Office Visit 01/15/2017 Carmine Johnson, I25.10 Athscl heart 10:40a [facility], FACC, disease of [place] Certified Diabetes Educator AT [facility] coronary artery w/o ang pctrs E78.5 Hyperlipidemia, unspecified Office Visit 12/25/2016 11:40a [facility] Internal Reese Blackman E11.9 Type 2 diabetes Becca Streeter M.D. mellitus without [place] complications Office Visit 11/14/2016 1:20p [facility] Internal Alvarado Tellez, M54.16 Radiculopathy, Medicine - [place] [address] region Rd S76.011D Strain of muscle, fascia and tendon of right hip, subs Office Visit 11/13/2016 2:00p Orthopedic Dirk Armando, M54.16 Radiculopathy , [facility] [place] lumbar region C.M.A. Office Visit 11/03/2016 10:20a [facility] Internal Reese Blackman Z00.00 Encntr for general Medicine - [place] Streeter adult medical exam [place] w/o abnormal findings I25.9 Chronic ischemic heart disease, unspecified E78.5 Hyperlipidemia, unspecified K21.9 Gastro-esophageal reflux disease without esophagitis Z85.46 Personal history of malignant neoplasm of prostate E11.9 Type 2 diabetes mellitus without complications Office Visit 10/16/2016 9:40a [facility] [facility] Internal Alvarado Tellez S76.011D Strain of Medicine - [facility] muscle, fascia [address] and tendon of right hip, subs Office Visit 09/27/2016 12:40p [facility] Internal Alvarado Tellez, Z13.1 Encounter for Medicine - [facility] screening for [address] diabetes mellitus R35.0 Frequency of micturition S76.011A Strain of muscle, fascia and tendon of right hip, init Office Visit 04/28/2016 1:00p [facility] Loreta Floyd MD M25.562 Pain in left [facility] AT [place] knee M76.892 Oth enthesopathies of left lower limb, excluding foot Office Visit 10/27/2015 9:00a [facility] Internal Elder K64.9 Unspecified Medicine - Matilda Cervantes hemorrhoids [place] A69.29 Other conditions associated with Lyme disease Office Visit 07/02/2015 3:40p [facility] Neftali Johnson, 414.9 Ischemic Heart Of [facility] [place], [facility], Disease Chronic FSCAI Unspec 272.4 Hyperlipidemia Other Unspec 427.31 Atrial Fibrillation Office Visit 02/24/2015 11:00a [facility] Medicine Reese Streeter, 786.2 Cough - Kasia Grey 790.21 Impaired Fasting Glucose V73.89 Screening Examination Viral Diseases Other Spec Office Visit 08/10/2014 3:20p [facility] Neftali Johnson, 414.9 Ischemic Heart Of [facility] AT [facility]ilda, FAC, Disease Chronic FSCAI Unspec 272.4 Hyperlipidemia Other Unspec 427.31 Atrial Fibrillation Office Visit 02/11/2014 1:20p [facility] Internal Angie Pepe, 911.4 Injury Medicine - N.P. Superficial [place] Insect Bite Trunk Nonvenomous W/O Infect Office Visit 11/17/2013 10:45a Orthopedic Hayley 927.3 [facility] Of Nancy Giron M.D. Finger(S) AT [place] Office Visit 11/13/2013 10:00a Orthopedic Hayley 927.3 [facility] Matilda Giron Finger(S) C.M.A. Office Visit 08/04/2013 10:45a [facility] Neftali Johnson, 414.9 Ischemic Heart Of [facility] AT [facility], [facility], Disease Chronic FSCAI Unspec 272.4 Hyperlipidemia Other Unspec Office Visit 07/07/2013 10:45a [facility] Neftali Johnson, 414.9 Ischemic Heart Of [facility] AT [facility], [facility], Disease Chronic FSCAI Unspec Office Visit 02/19/2013 1:00p [facility] Internal Reese Blackman 709.9 Skin & Becca Streeter M.D. Subcutaneous [place] Tissue Disorders Unspec Office Visit 12/26/2012 10:30a [facility] Neftali Johnson, 414.9 Ischemic Heart Of [facility], [facility], Disease Chronic FSCAI Unspec 272.4 Hyperlipidemia Other Unspec Office Visit 04/30/2012 4:00p [facility] Internal Reese Blackman 786.50 Pain Chest Unspec Becca Streeter M.D. [place] Office Visit 04/03/2012 1:30p [facility] Internal Destiney 784.1 Throat Pain Medicine Denise [place]wood , N.P. Office Visit 01/18/2012 10:40a [facility] Internal Reese Blackman V70.0 Examination Becca Streeter M.D. General Medical [place] Routine AT Health Care Facility 530.81 Esophageal Reflux 272.0 Hypercholesterolemia Pure 790.21 Impaired Fasting Glucose V10.46 History Personal Malignant Neoplasm Prostate Office Visit 01/09/2012 2:40p [facility] Internal Reese Blackman 465.9 URI Upper Becca Streeter M.D. Respiratory [place] Infections Acute Unspec Sites Office Visit 07/27/2010 10:20a DO Not Use [facility] Reese Blackman 796.2 Blood Pressure AT Redd Streeter M.D. [place] Elevated W/O Hypertension 530.81 Esophageal Reflux 790.21 Impaired Fasting Glucose 272.0 Hypercholesterolemia Pure 790.93 Elevated Prostate Specific Antigen (PSA) Office Visit 02/02/2010 DO Not Use Certified Diabetes Educator Reese E. 796.2 Blood Pressure [place] 10:20a AT Redd Streeter M.D. Elevated W/O Hypertension Office Visit 01/19/2010 DO Not Use Certified Diabetes Educator Reese E. 272.0 Hypercholesterolemia Pure 2:40p AT Redd Streeter M.D. 790.21 Impaired Fasting Glucose 530.81 Esophageal Reflux 790.93 Elevated Prostate Specific Antigen (PSA) V06.5 Tetanus Diphtheria (DT) v06.5 Tetanus Diphtheria (DT) V70.0 Examination General Medical Routine AT Health Care Facility Office Visit 02/01/2009 3:30p [facility] Reese Blackman 782.1 Rash & Other AT Jesus Streeter M.D. Nonspec Skin [place] Eruption E906.5 Bite By Unspec Animal Office Visit 11/03/2008 Bon Blackman 723.1 Cervicalgia 1:45p Assoc AT Matilda Streeter [facility] Office Visit 08/12/2008 [address] Blackman 272.0 Hypercholesterolemia Pure 9:00a Assoc AT Matilda Streeter [facility] V70.0 Examination General Medical Routine AT Health Care Facility Office Visit 03/12/2008 11:15a Bon Blackman 796.2 Blood Pressure Assoc AT Matilda Streeter [place] Elevated [facility] W/O Hypertension 272.0 Hypercholesterolemia Pure 599.7 Hematuria Office Visit 02/20/2008 10:30a [address] Hao Blackman 796.2 Blood Pressure Assoc AT Matilda Streeter [place] Elevated [facility] W/O Hypertension Office Visit 10/04/2007 11:30a Bon Blackman 466.0 Bronchitis Acute Assoc AT Matilda Streeter [facility] Plan of Treatment Future Appointment(s):01/08/2019 11:00 am - Reese Streeter M.D. at [facility] Internal Medicine - Thnsoevlp31/08/2019 8:40 am - Leatha Torre M.D. at [place] [facility] [place]
[2018-12-31 08:41] LABS: ABS Basophils 0 10^3/ul (0-0.2); ABS Eosinophils 0.1 10^3/ul (0-0.6); ABS Lymphocytes 1.1 10^3/ul (1.0-4.8); ABS Monocytes 0.8 10^3/ul (0-0.8); ABS Nucleated RBC 0 10^3/ul; Eosinophil % 1.8 %; Hematocrit 47 % (42-52); Hemoglobin 15.7 g/dl (14.0-18.0); Lymphocyte % 15.9 %; Mean Corpuscular HGB Conc 34 g/dl (31-36); Mean Corpuscular Hemoglobin 30 pg (27-31); Mean Corpuscular Volume 88 fL (80-94); Mean Platelet Volume 8.3 fL (7.4-10.4); Nucleated Red Blood Cells % 0.1; Platelet Count 207 10^3/ul (150-450); Red Cell Distribution Width 14 % (10.5-15); White Blood Count 7.1 10^3/ul (3.5-10.8)
--- NOTE | 2018-12-31 08:42 | ED ---
Neurological HPI - HPI Summary HPI Summary: A 73 y/o male presents to [facility] with a chief complaint of left sided facial numbness since waking up the morning of 12/31/18. The patient claims that he also felt numb at the left side of his neck and lips at about 18:00 12/30/18 but went away later that night. Now he reports the whole left side of his face feels numb and thinks that his left eye is droopy. At triage the patient rated his pain as a 2/10 in severity and also c/o a slight left sided headache. Dr. Ruth in room to evaluate patient at 08:15. Pam de la fuente was called at 08:20. Patient had brain CT done at 08:[address] Young, neurology, consulted the patient. - History of Current Complaint Chief Complaint: EDNeurologicalDeficit Stated Complaint: LEFT SIDE FACE NUMBNESS Hx Obtained From: Patient Onset/Duration: Sudden Onset, Started hours ago, Still Present Timing: Intermittent Episodes Lasting: - 2 episodes Onset Severity: Mild Current Severity: Mild Neurological Deficit Location: Facial Pain Intensity: 2 Pain Scale Used: 0-10 Numeric Character: Numbness/Tingling Aggravating: Nothing Alleviating: Nothing Associated Signs and Symptoms: Positive: Headache. Negative: Fever - Allergy/Home Medications Allergies/Adverse Reactions: Allergies Allergy/AdvReac Type Severity Reaction Status Date / Time Tetanus Vaccines and Toxoid AdvReac Mild Fever Verified 12/31/18 08:10 Home Medications: Home Medications Metoprolol Tartrate TAB* [Lopressor TAB*] 25 mg PO BID 12/31/18 [History Confirmed 12/31/18] Tadalafil [Cialis] 20 mg PO 12/31/18 [History] PMH/Surg Hx/FS Hx/Imm Hx Endocrine/Hematology History: Denies: Hx Diabetes Cardiovascular History: Reports: Hx Angina - had back pain, Hx Coronary Artery Disease, Hx Hypercholesterolemia, Hx Hypertension Denies: Hx Myocardial Infarction, Hx Pacemaker/ICD, Hx Valvular Heart Disease Respiratory History: Denies: Hx Asthma, Hx Chronic Obstructive Pulmonary Disease (COPD) History: Denies: Hx Dialysis Sensory History: Denies: Hx Hearing Aid Psychiatric History: Denies: Hx Panic Disorder - Surgical History Surgery Procedure, Year, and Place: CARDIAC STENT- [place] [facility]IFIC VERIFLEX- PER DR SOTO- MRIs ONLY ON 1.5T AND NO MRIs BETWEEN CSP & PELVIS- OK TO SCAN THIS PT'S PELVIS & BELOW); CATARACTS; PROSTATE REMOVED 2010; Infectious Disease History: No Infectious Disease History: Denies: Hx Clostridium Difficile, Hx Hepatitis, Hx Human Immunodeficiency Virus (HIV), Hx of Known/Suspected MRSA, Hx Shingles, Hx Tuberculosis, Traveled Outside the [place] in Last 30 Days - Family History Known Family History: Negative: Blood Disorder - Social History Alcohol Use: Rare Substance Use Type: Reports: None Smoking Status (MU): Former Smoker Type: Cigarettes Length of Time of Smoking/Using Tobacco: 8yrs Have You Smoked in the Last Year: No Review of Systems Negative: Fever Neurological: Other - Positive: feels like his left eye is drooped Positive: Headache, Numbness All Other Systems Reviewed And Are Negative: Yes Physical Exam - Summary Physical Exam Summary: Appearance: The patient is well-nourished in no acute distress and in no acute pain. Skin: The skin is warm and dry and skin color reflects adequate perfusion. HEENT: The head is normocephalic and atraumatic. The pupils are equal and reactive. The conjunctivae are clear and without drainage. Nares are patent and without drainage. Mouth reveals moist mucous membranes and the throat is without erythema and exudate. The external ears are intact. The ear canals are patent and without drainage. The tympanic membranes are intact. Neck: The neck is supple with full range of motion and non-tender. There are no carotid bruits. There is no neck vein distension. Respiratory: Chest is non-tender. Lungs are clear to auscultation and breath sounds are symmetrical and equal. Cardiovascular: Heart is regular rate and rhythm. There is no murmur or rub auscultated. There is no peripheral edema and pulses are symmetrical and equal. Abdomen: The abdomen is soft and non-tender. There are normal bowel sounds heard in all four quadrants and there is no organomegaly palpated. Musculoskeletal: There is no back tenderness noted. Extremities are non-tender with full range of motion. There is good capillary refill. There is no peripheral edema or calf tenderness elicited. Neurological: Mild left sided facial droop and numbness. Patient is alert and oriented to person, place and time. The patient has symmetrical motor strength in all four extremities. Deep tendon reflexes are symmetrical and equal in all four extremities. Psychiatric: The patient has an appropriate affect and does not exhibit any anxiety or depression. Triage Information Reviewed: Yes Vital Signs On Initial Exam: Initial Vitals Temp Pulse Resp BP Pulse Ox 97.9 F 86 18 149/89 99 12/31/18 08:10 12/31/18 08:10 12/31/18 08:10 12/31/18 08:10 12/31/18 08:10 Vital Signs Reviewed: Yes - Shanda Coma Scale Best Eye Response: 4 - Spontaneous Best Motor Response: 6 - Obeys Commands Best Verbal Response: 5 - Oriented Coma Scale Total: 15 Diagnostics - Vital Signs Vital Signs Temp Pulse Resp BP Pulse Ox 12/31/18 08:10 97.9 F 86 18 149/89 99 - Laboratory Result Diagrams: 12/31/18 08:35 12/31/18 08:35 Lab Statement: Any lab studies that have been ordered have been reviewed, and results considered in the medical decision making process. - Radiology CXR Radiology Interpretation Completed By: Radiologist Summary of Radiographic Findings: NO ACTIVE CARDIOPULMONARY DISEASE IS NOTED. ED physician has reviewed this imaging report. - CT Brain CT Interpretation Completed By: Radiologist Summary of CT Findings: Normal CT of the Brain. ED physician has reviewed this imaging report. Head MRA CT Interpretation Completed By: Radiologist Summary of CT Findings: No central intracranial arterial occlusion or hemodynamically significant stenosis. Normal variation as described. ED physician has reviewed this imaging report. Neck MRA CT Interpretation Completed By: Radiologist Summary of CT Findings: 1. THERE IS MILD RIGHT AND MODERATE LEFT CAROTID BULB ATHEROSCLEROSIS YIELDING. APPROXIMATELY 20% DEGREE STENOSIS ON THE RIGHT AND JUST OVER 50% DEGREE STENOSIS ON THE. LEFT ACCORDING TO NASCET CRITERIA. 2. THERE IS NO FOCAL OCCLUSION IN THE CERVICAL ARTERIES OR OTHER ACUTE ABNORMALITY. ED physician has reviewed this imaging report. Brain MRI CT Interpretation Completed By: Radiologist Summary of CT Findings: No evidence for acute or subacute ischemia. Nonspecific small white matter lesions at the periventricular white matter of the RIGHT. frontal lobe are nonspecific and may reflect small vessel ischemic change or potentially. demyelinating lesions in the correct clinical context. Similar findings may also be seen. in setting of migraine headaches. ED physician has reviewed this imaging report. - EKG 08:40 Cardiac Rate: NL - 86 bpm EKG Rhythm: Sinus Rhythm ST Segment: Normal Ectopy: None Summary of EKG Findings: Normal sinus rhythm, normal ST, no ectopy, no STEMI NIH Scale - NIH Scale Level of Consciousness: Alert/Keenly Responsive Ask Patient the Month and His/Her Age: Both Correct Ask Pt to Open/Close Eyes and Pipe Washer/Release Non-Paretic Hand: Both Correctly Best Gaze (Only Horizontal Eye Movement): Normal Visual Field Testing: No Visual Loss Facial Paresis-Pt to Smile & Close Eyes or Grimace Symmetry: Minor Paralysis Motor Function - Right Arm: No Drift-Holds 10 Seconds Motor Function - Left Arm: No Drift-Holds 10 Seconds Motor Function - Right Leg: No Drift-Holds 10 Seconds Motor Function - Left Leg: No Drift-Holds 10 Seconds Limb Ataxia-Must be out of Proportion to Weakness Present: Absent Sensory (Use Pinprick to Test Arms/Legs/Trunk/Face): Pinprick Less on Affected Best Language (Describe Picture, Name Items): No Aphasia Dysarthria (Read Several Words): Normal Extinction and Inattention: No Abnormality Total Score: 2 Re-Evaluation - Re-Evaluation First Eval Re-Evaluation Time: 08:39 Change: Unchanged Comment: Informed pt about CT results. Course/Dx - Course Course Of Treatment: Mr. Dacosta presented to the emergency department with about 18 hours of left-sided numbness. It started in his face and now includes his left upper extremity. When I saw him I felt that he had a slight droop of the left side of his face as well as numbness in the left upper extremity and face. A code de la fuente was called and Dr. Young came to the emergency department and evaluated the patient. He recommended MRI/MRA of the head and neck and admission to the hospitalist. Dr. Gonzalez was contacted and agreed to admission. Patient remained stable here in the emergency department. - Diagnoses Provider Diagnoses: CVA (cerebral vascular accident) - Physician Notifications Discussed Care Of Patient With: Bonita Young Time Discussed With Above Provider: 08:40 Instructed by Provider To: Other - Recommends MRI. - Critical Care Time Critical Care Time: 30-74 min Discharge - Sign-Out/Discharge Documenting (check all that apply): Patient Departure - admit Patient Received Moderate/Deep Sedation with Procedure: No - Discharge Plan Condition: Fair Disposition: ADMITTED TO [facility] Referrals: Reese Streeter MD [Primary Care Provider] - - Billing Disposition and Condition Condition: FAIR Disposition: Admitted to [facility] - Attestation Statements Document Initiated by Scribe: Yes Documenting Scribe: Neftali Styles Provider For Whom Scribe is Documenting (Include Credential): Demond Ruth MD Scribe Attestation: I, Neftali Styles, scribed for Demond Ruth MD on 12/31/18 at 1105. Scribe Documentation Reviewed: Yes Provider Attestation: The documentation as recorded by the amyeNeftali accurately reflects the service I personally performed and the decisions made by me, Demond Ruth MD Status of Scribe Document: Viewed Consult Consult: At 09:05 - Discussed case with Dr. Gonzalez, hospitalist, who accepted the patient for admission.
[2018-12-31 08:51] LABS: INR 0.96 (0.77-1.02)
[2018-12-31] MEDS ORDERED: Aspirin 81 mg CHEW TAB* 81 MG TAB.CHEW PO ONE (08:57)
[2018-12-31] MEDS ORDERED: Clopidogrel TAB* 75 MG PO ONE (08:57)
[2018-12-31 09:00] LABS: Albumin 4.9 g/dL (3.2-5.2); Albumin/Globulin Ratio 1.6 (1-3); BUN/Creatinine Ratio 18.9 (8-20); Calcium 10.1 mg/dL (8.6-10.3); EGFR African American 78.8 (>60); EGFR Non-African American 65.1 (>60); HDL Cholesterol 61.7 mg/dL; Potassium 4.4 mmol/L (3.5-5.0); Total Bilirubin 0.5 mg/dL (0.2-1.0); Total Protein 7.9 g/dL (6.4-8.9)
[2018-12-31] MEDS ORDERED: Dextrose 50% Syringe 50 ML* 25 GM/50 ML SYRINGE IV PUSH PRN (10:51)
[2018-12-31] MEDS: Pantoprazole TAB * 40 MG TAB PO SCH (12:06)
[2018-12-31] MEDS: Metoprolol Tartrate TAB* 25 MG PO SCH ×2 (12:10→20:28)
[2018-12-31] MEDS: Insulin LISPRO* 1 UNITS UNIT SUBCUT SCH ×2 (12:18→17:02)
[2018-12-31 12:49] LABS: Urine Appearance Clear; Urine Bilirubin Negative (Negative); Urine Blood Negative (Negative); Urine Color Yellow; Urine Glucose 3+(>=500 mg/dL) (Negative); Urine Ketones Trace (Negative); Urine Nitrite Negative (Negative); Urine Protein Negative (Negative); Urine Specific Gravity 1.024 (1.010-1.030); Urine Urobilinogen Negative (Negative)
--- NOTE | 2018-12-31 13:08 | HP ---
HISTORY AND PHYSICAL: DATE OF ADMISSION: 12/31/18 ADMITTING PROVIDER: Brian Gonzalez MD CONSULTING NEUROLOGIST: Dr. Young. PRIMARY CARE PROVIDER: Dr. Streeter. OUTPATIENT ROLLER BEARING INSPECTOR: Formerly Dr. Johnson. Plan is to establish with Dr. Torre, he thinks, in the next week. PRINCIPAL DIAGNOSIS: Numbness to the left face. HISTORY OF PRESENT ILLNESS: Preston Dacosta is a 73-year-old male with a past medical history of CAD with 2012 RCA stent, noninsulin-dependent diabetes mellitus type 2, hypertension, hyperlipidemia, GERD, [place] esophagus, intermittent medication compliance, former smoker. He noticed around 1 p.m. the day prior to admission that he had a sharp pain in his right neck that lasted for about 30 seconds. A few hours later after he got home from work, he noticed some numbness to his left side of his upper and lower lips. When he woke up the morning of admission, the numbness had progressed to most of his entire left face. This caused him some anxiety, presented to the [facility] Emergency Room and Pam Cabrera was called. He denies any other weakness, slurred speech, confusion. He does get intermittent palpitations about 30 seconds at a time. He had this this morning with anxiety. Last was about 2 weeks prior. He intermittently remembers to take some of his medications, especially his night medications. He has lost weight through a walking exercise program. His hemoglobin A1c has improved from 7.1% six months ago to 6.3% on 12/14/18. In the emergency room, he had a CT of the head, noncontrast, which showed no acute process. Dr. Young evaluated him and recommended MRI of the brain, MRA of the head and neck, and admission for a TIA versus CVA workup. PAST MEDICAL HISTORY: Noninsulin-dependent diabetes mellitus; hypertension; hyperlipidemia; [place] esophagus; last EGD December 2017 which was smooth, no dysplasia, however, followup in 3 years; moderate hiatal hernia, GERD; CAD with RCA stent in 2011. PAST SURGICAL HISTORY: Bilateral cataracts, prostatectomy, RCA stent. MEDICATIONS: Include: 1. Metoprolol tartrate 25 mg p.o. b.i.d. 2. Invokana 100 mg p.o. daily. 3. Aspirin 81 mg daily. 4. Crestor 10 mg p.o. daily. 5. Protonix 40 mg p.o. daily. 6. Metformin 1000 mg p.o. b.i.d. 7. Cialis 20mg p.o. p.r.n. ALLERGIES: TETANUS VACCINE. FAMILY HISTORY: Father of COPD at age 76. Mother of Creutzfeldt- Silvestre disease confirmed by NIH testing at age 71. Maternal grandfather also had a quickly degenerative neuro disease, at age 41, along with a maternal cousin and maternal aunt (age 60) with similar circumstances. Sister , was a smoker, had a lung transplant, may have had enzyme deficiency (? alpha-1 antitrypsin deficiency) and did not tolerate antirejection immunosuppression medications. Brother of esophageal cancer at age 49. SOCIAL HISTORY: The patient is a former smoker for 8 years, 1 pack per day, quit in 1996. He is an occasional wine drinker. 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 No drug use. He is a full code. Medical surrogate is his daughter, Paris Gutierrez. REVIEW OF SYSTEMS: A complete 14-point review of systems was negative except per HPI. PHYSICAL EXAMINATION GENERAL: Appears in no acute distress. VITAL SIGNS: Temperature 97.9, pulse rate in the 86, respiratory rate 12 to 18 , satting 90% to 91% on room air. Blood pressure 139/93. HEENT: Normocephalic, atraumatic. Pupils are equally round and reactive to light. Extraocular motions intact. No scleral icterus. Moist mucous membranes. NECK: Supple. No cervical lymphadenopathy. LUNGS: Clear to auscultation bilaterally. No wheezing, rales, or rhonchi. CARDIOVASCULAR: Regular rate and rhythm. No murmurs, rubs, or gallops. ABDOMEN: Soft, nontender, and nondistended. EXTREMITIES: Warm and well perfused. No peripheral edema. NEUROLOGIC: Cranial nerves II through XII intact except numbness in V1 and V2 distributions, slightly in V3. Chemical Sales Representative strength intact. Hip flexion and dorsiflexion intact. Biceps, triceps, and muscles intact. Negative Babinski. Rapid arm motions intact. [id number] intact. No pronator drift. Slight perception of numbness in left arm vs right. LABORATORY DATA: White count 7.1, hemoglobin 15.7, hematocrit 47, INR 0.96. Sodium 139, potassium 4.4, chloride 104, carbon dioxide 25, BUN 21, creatinine 1.11, glucose 145. AST 32, ALT 44. Troponin 0.00. LDL 109, HDL 62. IMAGING: CT head: No acute process. Chest x-ray demonstrated no active cardiopulmonary disease. MRA of the head with no central occlusion. MRI of the brain has just returned and shows no evidence of acute or subacute ischemia. There is nonspecific small white matter lesions at the paravertebral white matter of the right frontal lobe. They are nonspecific and may reflect small vessel ischemic changes or potentially demyelinating lesion. In the correct clinical context, some of the findings may be seen in the setting of migraine headaches. Neck MRA is pending. ASSESSMENT AND PLAN: Preston Dacosta is a 73-year-old male with a past medical history of hypertension; hyperlipidemia; coronary artery disease, status post right coronary artery stent in 2011; pzv-nkjsehe-nplwgaxde diabetes mellitus type 2 with some issues with medication compliance with his night medications, presenting with left face numbness. Will be admitted for transient ischemic attack versus cerebrovascular accident rule out. Appreciate reccomendations of Dr. Young. Will follow up with the MRI of head and neck with a transthoracic echocardiogram with bubble study. Put him on telemetry. He does have intermittent palpitations, he plans to see Dr. Torre. Continue his aspirin. Start Plavix 75mg daily. Continue his Crestor, metoprolol, Protonix. Hold his Invokana and metformin, put him on a sliding scale insulin q.a.c. A1c has actually improved to 6.3%. He can eat a heart healthy, carbohydrate consistency. He is a full code. Medical surrogate is Paris Gutierrez. Being admitted to observation status. [id number]/[facility] #: [id number] MTDD
--- NOTE | 2018-12-31 14:19 | CONS ---
NEUROLOGY CONSULTATION NOTE: DATE OF CONSULT: 12/31/18 CONSULTING PROVIDER: Dr. Demond Ruth. REASON FOR CONSULT: Activated Code Cabrera due to left facial numbness. CHIEF COMPLAINT: Facial numbness. HISTORY OF PRESENT ILLNESS: Mr. Preston Dacosta is a 73-year-old pleasant right - handed man who has new onset, sudden onset left facial numbness. The patient' s last known well time was 3 p.m. on 12/30/18. The symptoms onset started at 4 p.m. on 12/30/18. The patient was sitting down when he felt perioral numbness on the left side. He woke up this morning at 8 o'clock with complete left face , arm, and leg numbness. He denied any neck pain at this time, but he did notice a sharp pain in the right side of the neck yesterday that had resolved. The pain was sharp, stabbing in nature, lasted for approximately 5 to 10 seconds and completely abated. He denied any chest pain, shortness of breath, or palpitation. He denied any double vision. NIH Stroke Scale on evaluation today is 1 for left facial numbness. PAST MEDICAL HISTORY: Diabetes, GERD, cholesterol, dyslipidemia, hypertension, and erectile dysfunction. MEDICATIONS: 1. Aspirin 81 mg daily. He took aspirin this morning. 2. Rosuvastatin 10 mg p.o. daily. 3. Pantoprazole 40 mg daily. 4. Invokana 100 mg p.o. daily. 5. Metformin 1000 mg p.o. b.i.d. 6. Metoprolol 25 mg p.o. b.i.d. 7. Tadalafil 20 mg p.o. daily. FAMILY HISTORY: No family history of stroke or seizure. His mother of CJD (Creutzfeldt-Silvestre disease). SOCIAL HISTORY: The patient denied any tobacco use. He drinks alcohol rarely. He is retired. He lives alone, but has 4 children. REVIEW OF SYSTEMS: A 14-point review of systems was obtained and otherwise negative except for what is mentioned in the HPI. PHYSICAL EXAMINATION: General: Well-nourished, well-developed man, in no acute distress. He is alert, oriented and cooperative. He is in no apparent distress. Head is normocephalic, atraumatic with no obvious abnormality. Eyes: Conjunctivae/cornea are clear. Neck is supple and symmetrical with no carotid bruit. Lungs are clear to auscultation bilaterally. Cardiovascular: Regular rate and rhythm with normal S1, S2. Extremities: Normal range of motion with no cyanosis. Skin: No skin lesions or lacerations. Psych: Affect is broad and normal mood. Neurological Examination: Mental Status: Awake, alert, and oriented to person, place, time, and general circumstances. Speech and language including expression, naming, repetition, and comprehension were assessed and found to be normal. Cranial Nerves: Normal confrontation testing bilaterally. He did have a slight horizontal nystagmus towards the left side that was continuous. He denied a double vision. Sensation is reduced to light touch and temperature sensation on the left side of the face in all 3 distributions. He is able to hear throughout the history process. Symmetrical palatal elevation. Normal strength against shoulder shrug. Tongue is symmetrical and midline with no atrophy or fasciculation. Motor Examination: Mild pronator drift on the left. Normal bulk and tone throughout. No fasciculation. Motor strength is 5/5 throughout. Reflexes: Right/left, brachioradialis 1/1, biceps 1/1, triceps 1/1, patella 1/1, ankle 0/0, plantar flexor/flexor. Sensation was reduced to light touch and pinprick all throughout the left upper and lower extremities. He has decreased vibratory sensation at 5 seconds bilaterally at the great toes. Proprioception is intact bilaterally. Coordination: Normal [id number] and rapid alternating movements. Gait and station were not assessed due to the assessment of acute stroke. DIAGNOSTIC STUDIES/LAB DATA: Labs, imaging, and other diagnostic testing: WBC 7.1, hemoglobin of 15, hematocrit of 47, platelet count of 207. INR is 0.96, PTT is 34. Sodium is 139, potassium 4.4, chloride 104, carbon dioxide 25, BUN is 21, creatinine 1.11, glucose of 145. LDL is 109. Urinalysis is negative for pyuria. CT head imaging showed no evidence of acute intracranial abnormality. ASSESSMENT/RECOMMENDATIONS: 1. Mr. Preston Dacosta is a 73-year-old man with a past medical history of diabetes, dyslipidemia, who presented with sudden onset left perioral numbness that progressed to left hemianesthesia. I suspect the patient had an acute brainstem stroke possibly involving the pontine perforators on the right. Other differential diagnosis includes sensory seizures or vitamin B12 deficiency in an elderly man on metformin cannot be entirely excluded. He does not have any evidence of myelopathy on examination and he has predominantly facial involvement, so I do not suspect this is coming from the cervical spine. His NIH stroke scale is 1. Therefore, he is not a candidate for IV tPA due to low NIH Stroke Scale and due to being outside the therapeutic window. He was not assessed for large vessel occlusion given his VAN assessment is negative and his NIH Stroke Scale is low. I recommend the following test to be obtained: An MRI of brain, MRA head and neck to evaluate for a possible vertebral dissection, which I do not suspect in this case. Please note that MRI of the brain can show false negative results within the first 24 hours in posterior circulatory infarction. Other differential can also be transient ischemic attack in this case if his symptoms resolved within first 24 hours. Please start him on Plavix 75 mg daily and give him aspirin, total of three 81 mg tablets today and continue 81 mg aspirin starting tomorrow in a combination with the Plavix. Please start high intensity statin therapy. Obtain a vitamin B12 level and TSH. A 2D transthoracic echo with bubble study to evaluate for PFO, ASD and cardiac thrombus. PT/OT/MACHINE STEMMER evaluation and treatment. Please do a swallow evaluation before giving any of the above recommended medications. 2. Diabetes and dyslipidemia. Defer to the primary team, but the patient reports well control of his comorbid conditions. TIME SPENT: I spent a total of 75 minutes of which greater than 50% was spent obtaining history, examining the patient, interpreting CT head results, and discussing the treatment plan with the patient and Dr. Demond Ruth. I also educated and counseled the patient regarding our concerned diagnosis. [id number]/[facility] #: [id number] LILIA
[2018-12-31] MEDS ORDERED: Simethicone TAB* 80 MG TAB.CHEW PO PRN (16:18)
[2018-12-31] MEDS ORDERED: Atorvastatin* 20 MG TAB PO SCH (17:00)
--- NOTE | 2018-12-31 17:13 | ECHO ---
Patient: CASSIDY ROSALES [facility] Rec#: [id number] : 1945 Date: 12/31/2018 Age: 73y Height: 173 cm / 68.1 in Weight: 77 kg / 169.7 lbs Sex: M BSA: 1.91 Room#: [facility] Admit Date#: 12/31/2018 Type: Inpatient Referring: Brian Gonzalez Reading: Lamont Morales MD Grind Operator: Karly Grossman RDCS CC: Reese Streeter MD CC: Leatha Torre MD Transthoracic Echocardiogram Indication: TIA/ CVA BP: 132/89 HR: 84 Rhythm: NSR with PVCs Findings History: CAD, s/p PCI 2011, HTN, HLD, former smoker, hiatal hernia. Technical Comments: The study quality is good. Completed at 1530. Left Ventricle: The left ventricular chamber size is normal. Mild concentric left ventricular hypertrophy is observed. There is increased basal septal hypertrophy noted without evidence of an increased gradient across the left ventricular outflow tract. There is normal left ventricular systolic function. The estimated ejection fraction is 55-60%. Abnormal left ventricular diastolic function is observed. Left Atrium: The left atrial chamber size is normal. Right Ventricle: Moderator Band present. The right ventricular cavity size is normal. The right ventricular global systolic function is normal. Right Atrium: The right atrial cavity size is normal. Interatrial septum appears intact without evidence of shunting. The bubble study is negative. A patent foramen ovale is not demonstrated with color Doppler and agitated contrast. Aortic Valve: The aortic valve is trileaflet. The aortic valve leaflets are mildly thickened. There is a trace of aortic regurgitation. There is no evidence of aortic stenosis. Mitral Valve: The mitral valve leaflets are mildly thickened. There is trace to mild mitral regurgitation. There is no evidence of mitral stenosis. Tricuspid Valve: The tricuspid valve leaflets are normal. There is trace to mild tricuspid regurgitation. The right ventricular systolic pressure is estimated at 33 mmHg. There is evidence of borderline pulmonary hypertension. There is no tricuspid stenosis. Pulmonic Valve: The pulmonic valve appears normal. There is a trace pulmonic regurgitation. There is no pulmonic stenosis. Pericardium: There is no significant pericardial effusion. Aorta: There is no dilatation of the ascending aorta. There is no dilatation of the aortic arch. The aortic root is normal in size. Pulmonary Artery: The main pulmonary artery appears normal. Venous: The inferior vena cava is dilated. There is less than 50% respiratory change in the inferior vena cava dimension. Contrast: Intravenous agitated saline contrast was used to assess intracardiac shunting. Images 43-45. Summary: There are no significant changes when compared to the previous study done on 06/18/15 Conclusions There is increased basal septal hypertrophy noted without evidence of an increased gradient across the left ventricular outflow tract. There is normal left ventricular systolic function. The estimated ejection fraction is 55-60%. The right ventricular global systolic function is normal. A patent foramen ovale is not demonstrated with color Doppler and agitated contrast. There is a trace of aortic regurgitation. There is trace to mild mitral regurgitation. There is trace to mild tricuspid regurgitation. There is evidence of borderline pulmonary hypertension. There is no significant pericardial effusion. There are no significant changes when compared to the previous study done on 06/18/15 Measurements Name Value Normal Range RVIDd (AP) 2D 3.2 cm (0.9 - 2.6) RVDdMajor (2D) 3.5 cm (2.2 - 4.4) RAd ISD 4CH 4.7 cm (3.4 - 4.9) RA (A4C)W 4.3 cm (2.9 - 4.6) IVSd (2D) 1.1 cm (0.6 - 1) LVPWd (2D) 1.1 cm (0.6 - 1) LVIDd (2D) 3.9 cm (3.6 - 5.4) LVIDs (2D) 2.4 cm - LV FS (2D) 39 % (25 - 45) Aortic Annulus 2.2 cm (1.4 - 2.6) Ao root diameter (2D) 3.2 cm (2.1 - 3.5) Ascending Ao 3.1 cm (2.1 - 3.4) Aortic arch 2.3 cm (1.8 - 3.4) LA dimension (AP) 2D 3.1 cm (2.3 - 3.8) LAd ISD 4CH 5 cm (2.9 - 5.3) LA ISD 4CH W 4.1 cm (2.5 - 4.5) Name Value Normal Range LA ESV BP (A/L) index 23 ml/m2 - Name Value Normal Range MV E-wave Vmax 0.6 m/sec - MV deceleration time 173 msec - MV A-wave Vmax 0.7 m/sec - MV E:A ratio 0.9 ratio - LV septal e' Vmax 0.08 m/sec - LV lateral e' Vmax 0.08 m/sec - LV E:e' septal ratio 7.5 ratio - LV E:e' lateral ratio 7.5 ratio - Name Value Normal Range AV Vmax 1.1 m/sec - AV VTI 21 cm - AV peak gradient 4 mmHg - AV mean gradient 2 mmHg - LVOT Vmax 0.8 m/sec - LVOT VTI 16 cm - LVOT peak gradient 3 mmHg - LVOT mean gradient 1 mmHg - SHAAN Vmax 0.7 m/sec - Name Value Normal Range TR Vmax 2.1 m/sec - TR peak gradient 18 mmHg - RAP 15 mmHg - RVSP 33 mmHg - IVC diameter 2.2 cm - Name Value Normal Range PV Vmax 1 m/sec - PV peak gradient 4 mmHg -
[2019-01-01] MEDS: Insulin LISPRO* 1 UNITS UNIT SUBCUT SCH (08:06)
[2019-01-01 08:08] VITALS: BP 118/75
[2019-01-01] MEDS: Metoprolol Tartrate TAB* 25 MG PO SCH (08:18)
[2019-01-01] MEDS: Pantoprazole TAB * 40 MG TAB PO SCH (08:18)
[2019-01-01] MEDS ORDERED: Aspirin EC TAB* 81 MG TAB.EC PO SCH (09:00)
[2019-01-01] MEDS ORDERED: Clopidogrel TAB* 75 MG PO SCH (09:00)
[2019-01-01 09:08] LABS: TSH (Thyroid Stimulating Horm) 3.73 mcIU/mL (0.34-5.60)
[2019-01-01] MEDS ORDERED: Cyanocobalamin INJ * 1,000 MCG/ML VIAL 1 ML VIAL IM ONE (09:23)
[2019-01-01] MEDS ORDERED: Cyanocobalamin TAB* 500 MCG PO SCH (10:00)
--- NOTE | 2019-01-01 12:24 | PN ---
Subjective Date of Service: 01/01/19 Length of Stay: 1 Days Neurology is following for left facial numbness. Interval History: The left face and extremity numbness completely resolved except for he has a small area by the left side of his nose that still feels numb. He informed me today that he was treated for Lyme rash last June 2019. He has no headache or visual disturbance. He has no focal weakness or paresthesia. He had an MRI brain without contrast that showed a small area of T2 hyperintensity in the right frontal lobe. This is non-specific. There were no areas of restricted diffusion to suggest a stroke. MRA head and neck are unremarkable except for slight ICA stenosis measuring 50% on the left and 20% on the right. He has no intracranial large vessel occlusion. He had an 2DTTE that showed normal EF and negative bubble study. Review of Systems: Denied CP, SOB, or palpitations. Objective Vital Signs 12/31/18 01/01/19 01/01/19 20:00 00:00 03:54 Temperature 97.6 F 98.0 F Pulse Rate 75 71 Respiratory 16 19 16 Rate Blood Pressure 103/61 100/60 (mmHg) O2 Sat by Pulse 100 99 96 Oximetry 01/01/19 01/01/19 07:42 08:02 Temperature 98.3 F Pulse Rate 71 Respiratory 18 16 Rate Blood Pressure 118/75 (mmHg) O2 Sat by Pulse 100 100 Oximetry Intake and Output Last 24 Hours 12/30/18 12/31/18 01/01/19 01/02/19 06:59 06:59 06:59 06:59 Intake Total 1240 240 Output Total 0 Balance 1240 240 Weight 171 lb 3.2 oz Intake: IV Fluids 1000 Oral 240 240 Output: Urine 0 Oxygen Devices in Use Now: None Neurology Exam: General: Well nourished, well developed, and in no acute distress HEENT: Normocephelic/atraumatic, sclera anicteric, mucous membranes moist Neck: Supple Chest: Clear to auscultation bilaterally Cardiovascular: Regular rate and rhythm without murmurs, rubs, gallops Abdomen: Soft, nontender/nondistended Extremities: No clubbing, cyanosis, or edema Neurological Findings: Awake, alert, and oriented to person, place, and time. Speech: fluent without dysarthric, repetition intact Cranial Nerve: PERRL, EOM intact, VFF, no nystagmus, face symmetric bilaterally , facial sensation intact, hearing intact to finger rub bilaterally, palate elevates symmetrically, tongue midline, SCM and Trapezius s/s. Motor: s/s throughout, proximal and distal extremities x4 tone/bulk normal Sensation: intact to LT/PP bilaterally upper and lower extremities Deep Tendon Reflex: 2+ symmetric in the upper/lower extremities, Babinski - down going Finger to nose, rapid alternating movements intact without tremor, no dysdiadochokinesia Gait: intact with good arm swing and stride Result Diagrams: 12/31/18 08:35 12/31/18 08:35 Assessment/Plan 1. Acute left hemianesthesia that resolved- the patient has subjective numbness in a small area in the left side of the face, but no abnormality on examination. He may be symptomatic from that small white matter lesion in the right frontal lobe but that would not typically contribute to numbness. 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 Other differential diagnosis include lower range B12 can cause numbness, but typically not acute onset and not asymmetric. Recommendations: DAPT for 30 days, then resume a higher dose aspirin 162 mg daily. Continue statin therapy. Primary stroke prevention and counseling provided to the patient today. 2. Lower range B12: started cyanocobalamin 1,000 mcg IM x 1 and PO daily. 3. ICA stenosis- anti-platelet and statin therapy. No need for a surgical referral at this time. Time spent: I spent 25 minutes of which greater than 50% was spent on examining , education and counseling, and discussing the treatment plan with the patient as mentioned above. I will see him for follow-up in 4 weeks.
[2019-01-01] MEDS ORDERED: Atorvastatin* 40 MG TAB PO SCH (17:00)
--- NOTE | 2019-01-01 22:00 | DS ---
DISCHARGE SUMMARY: DATE OF ADMISSION: 12/31/18 DATE OF DISCHARGE: 01/01/19 ADMITTING PROVIDER: Brian Gonzalez MD. PRIMARY CARE PROVIDER: Dr. Streeter. CONSULTING NEUROLOGIST: Dr. Young. CHIEF COMPLAINT: Numbness to the left face. PRINCIPAL DIAGNOSES: Likely transient ischemic attack; B12 deficiency. HISTORY OF PRESENT ILLNESS AND HOSPITAL COURSE: Preston Dacosta is a 73-year- old male with a past medical history of CAD, status post 2012 RCA stent, noninsulin- dependent diabetes mellitus type 2, hypertension, hyperlipidemia, GERD, Sevilla's esophagus, intermittent medication noncompliance, former smoker. Please see H and P for further details, but briefly, he had an episode of sharp pain in his right neck the day prior to admission and then a few hours later had some numbness to the left side of his upper and lower lips. Upon waking on the morning of admission, the numbness had progressed to his entire left face. [place] [facility] [place] and was admitted for TIA versus CVA workup. Dr. Young consulted on the case. He had a CT of his head, noncontrast, which showed no acute abnormalities. He had a brain MRI, noncontrast, that showed no evidence of acute or subacute ischemia. There was nonspecific small white matter lesions at the periventricular white matter of the right frontal lobe, which were nonspecific and may reflect small vessel ischemic change or potentially demyelinating lesions in the correct clinical context. Similar findings may also be seen in the setting of migraine headaches. He had an MRI of his head and neck, which demonstrated no central intracranial arterial occlusion or hemodynamically significant stenosis in the head and in the neck there was mild right and moderate left carotid bulb arteriosclerosis yielding approximately 20% decreased stenosis on the right and just over 50% decreased stenosis on the left according to NASCET criteria. There is no focal occlusion of cervical arteries or other acute abnormality. His LDL was 109, HDL 61, triglycerides 250. His symptoms improved overnight and he had just faint spot of residual numbness in the corner of his left nose. His B12 level was checked and was found to be low at 236. He got 1000 mg IM on the day of discharge and then started on new oral supplementation. He attested on the day of discharge that he had a tick bite and a bull's eye rash for several weeks back in June 2018, so a Lyme serology reflex to western blot was obtained, still pending. His TSH was 3.73. He had been started on dual-antiplatelet therapy on the day of admission with Plavix 75 mg daily and Neurology recommendation was to continue this for 30 days and then resume at a higher dose of aspirin 162 mg daily. His statin dose was increased as well. DISCHARGE MEDICATIONS: Include: 1. Aspirin 81 mg daily. 2. Invokana 100 mg p.o. daily. 3. Plavix 75 mg p.o. daily (new). 4. Cyanocobalamin 1000 mcg p.o. daily (new). 5. Metformin 1000 mg p.o. b.i.d. 6. Metoprolol tartrate 25 mg p.o. b.i.d. 7. Protonix 40 mg p.o. daily. 8. Crestor 40 mg p.o. daily (increased from prior of 10 mg daily). 9. Cialis 20 mg p.o. daily. FOLLOWUP: Please follow up with Dr. Reese Streeter within 10 days of discharge and Dr. Young within 4 weeks of discharge. DISCHARGE DIET: Heart healthy. DISPOSITION: Home, improved. TIME SPENT: Time spent on discharge was 35 minutes. [id number]/[facility] #: [id number] LILIA
== END 2019-01-01 10:50 | disposition home or self-care (01) ==
LOC: ED 08:07 → MEDTELE 10:07
PROVIDERS: ADMIT Internal Medicine; ATTEND Internal Medicine
DX: R20.0 Anesthesia of skin (principal); D51.9 Vitamin B12 deficiency anemia, unspecified; I10 Essential (primary) hypertension; E78.5 Hyperlipidemia, unspecified; K21.9 Gastro-esophageal reflux disease without esophagitis; I25.10 Atherosclerotic heart disease of native coronary artery without angina pectoris; E11.9 Type 2 diabetes mellitus without complications; I20.9 Angina pectoris, unspecified; Z86.73 Personal history of transient ischemic attack (TIA), and cerebral infarction without residual deficits; K22.70 Barrett's esophagus without dysplasia; Z87.891 Personal history of nicotine dependence; Z79.82 Long term (current) use of aspirin; N52.9 Male erectile dysfunction, unspecified
CPT/HCPCS: 36415; 70450; 70544; 70547; 70551; 71045; 80053; 80061; 81003; 82607; 83605; 84443; 84484; 85025; 85610; 85730; 86618; 86850; 86900; 86901; 93005; 93306; 96372; 99285; A9270-GY; G0378; J3420